=== PATIENT | female | born 1955 | race Caucasian/White ===

== ENCOUNTER → 2017-03-20 | Outpatient (CLI) | payer BC, OTHER ==
[2017-03-20 09:36] LABS: Bilirubin, Delta 0.2 mg/dL (0.0-0.2); Total Bilirubin 0.6 mg/dL (0.2-1.3); Total Protein 7.8 g/dL (6.3-8.2)
== END | disposition home or self-care (01) ==
LOC: LABWHC1 08:39
DX: K75.81 Nonalcoholic steatohepatitis (NASH) (principal)
CPT/HCPCS: 36415; 80076

== ENCOUNTER → 2017-07-05 | Outpatient (CLI) | payer BC, OTHER ==
--- NOTE | 2017-07-06 11:15 | MM ---
Reason for exam: screening (asymptomatic). Last mammogram was performed 1 year ago. History: Patient is postmenopausal. Family history of breast cancer in mother at age 75, breast cancer in maternal grandmother at age 60, and breast cancer in maternal aunt at age 60. Benign excisional biopsy of the right breast, 1990. Took estrogen beginning at age 45. Physical Findings: A clinical breast exam by your physician is recommended on an annual basis and results should be correlated with mammographic findings. MG Screening Mammo w CAD Bilateral CC and MLO view(s) were taken. Prior study comparison: June 28, 2016, mammogram, performed at [facility]. June 26, 2015, mammogram, performed at [facility]. There are scattered fibroglandular densities. Finding: There are typically benign round calcifications in both breasts. There is no discrete abnormality. ASSESSMENT: Benign, BI-RAD 2 RECOMMENDATION: Routine screening mammogram of both breasts in 1 year.
== END | disposition home or self-care (01) ==
LOC: RADMAMWWP 07:38
PROVIDERS: ATTEND Internal Medicine
DX: Z12.31 Encounter for screening mammogram for malignant neoplasm of breast (principal)

== ENCOUNTER → 2017-11-21 | Outpatient (CLI) | payer BC, OTHER ==
--- NOTE | 2017-11-21 22:32 | MR ---
EXAMINATION TYPE: MR brain wo con DATE OF EXAM: 11/21/2017 COMPARISON: Prior MRI brain October 18, 2016. HISTORY: Headaches, tinnitus, hx white matter changes TECHNIQUE: Multiplanar, multisequence imaging of the brain and brainstem is performed without IV cont rast. Demyelinating disease protocol. FINDINGS: Diffusion weighted images demonstrate no evidence of a recent infarct or other diffusion abnormality. There is no worrisome extra-axial fluid collection. There is ventricular and sulcal prominence consis tent with diffuse cerebral atrophy. There are roughly 10 scattered foci of T2 hyperintensity redemons trated throughout the white matter bilaterally. Five distinct lesions are seen on axial image 19 unch anged in size and appearance from prior study axial image 18. Midline structures demonstrate normal morphology. The craniocervical junction appears within normal limits. Normal vascular flow voids are present. The visualized sinuses are clear and the globes are i ntact. IMPRESSION: Mild diffuse age-related cerebral atrophy and nonspecific white matter changes most likel y on basis of product of chronic small vessel ischemic change in patient of this age. No significant change from prior MRI.
== END | disposition home or self-care (01) ==
LOC: RADMRIMAIN 18:02
PROVIDERS: ATTEND Internal Medicine
DX: G31.9 Degenerative disease of nervous system, unspecified (principal); R90.82 White matter disease, unspecified; H93.19 Tinnitus, unspecified ear
CPT/HCPCS: 70551

== ENCOUNTER → 2018-05-03 | Outpatient (CLI) | payer BC, OTHER ==
--- NOTE | 2018-05-04 09:15 | CT ---
EXAMINATION TYPE: CT abdomen pelvis w con DATE OF EXAM: 05/03/2018 COMPARISON: NONE INDICATION: Abdominal pain with bloating x2 months DLP: 1402 mGycm, Automated exposure control for dose reduction was used. CONTRAST: 100 mL of Isovue 300. Study performed with Oral Contrast TECHNIQUE: Axial images were obtained from above the diaphragm to the pubic rami in the axial plane a t 5 mm thick sections. Reconstructed images are reviewed on the computer in the coronal plane. FINDINGS: Limited CT sections are obtained the lung bases. The lung bases are clear. CT ABDOMEN: Liver: There is mild fatty infiltration present. No discrete masses or cysts are evident. Spleen: Normal Pancreas: Atrophy Adrenal glands: The adrenal glands are normal. Gallbladder: Normal Kidneys: No masses are evident. No hydronephrosis is present. Scattered small cortical cysts are mo st evident on the delayed images. The largest is at the superior pole left kidney measuring 1.1 cm an d 34 Hounsfield units. Delayed images were obtained through the kidneys, which remain unremarkable. Aorta: Normal Inferior vena cava: Normal. CT PELVIS: Loops of bowel within the abdomen and pelvis are normal. There are loops of bowel which are incom pletely distended or lack oral contrast limiting their evaluation. Appendix: Normal as visualized. Urinary bladder: Normal. Genitourinary structures: Uterus and ovaries are not identified. Osseous structures: No suspicious lytic or sclerotic lesions. Facet changes are present within the huong mbar spine. IMPRESSIONS: 1. Mild fatty infiltration liver. 2. Small cortical renal cysts
== END | disposition home or self-care (01) ==
LOC: RADCTMAIN 16:28
PROVIDERS: ATTEND Internal Medicine Critical Care Medicine
DX: N28.1 Cyst of kidney, acquired (principal); K76.0 Fatty (change of) liver, not elsewhere classified; R06.00 Dyspnea, unspecified
CPT/HCPCS: 74177; Q9967

== ENCOUNTER 2018-05-15 09:28 | Day surgery (SDC) | payer BC, OTHER ==
[2018-05-10 14:24] VITALS: BMI 24.9
[~2018-05-15 09:28] MED LIST: LACTATED RINGERS 1,000 ML IV SCH; LIDOCAINE 1% 20 ML VIAL (10MG/ML) FOR IV START INTRADERMA PRN; MIDAZOLAM 2 MG/2 ML VIAL IV PRN
[2018-05-15 09:52] VITALS: TEMP 97.9
[2018-05-15] MEDS ORDERED: PROPOFOL 10 MG/ML 20 ML VIAL IV ONE (10:51)
[2018-05-15] MEDS ORDERED: GLYCOPYRROLATE 0.2 MG/ML 2 ML VIAL ONE (10:51)
[2018-05-15] MEDS ORDERED: LIDOCAINE 1% INJ 10MG/ML (20 ML MDV) ONE (10:51)
--- NOTE | 2018-05-15 11:28 | P.PCN ---
Date of Procedure: 05/15/18 Procedure(s) Performed: Procedure: 1. Esophagogastroduodenoscopy and biopsy. 2. Total colonoscopy. Preoperative diagnosis: Chronic reflux symptoms and abdominal pain. Postoperative diagnosis: 1. Small sliding hiatal hernia with no obvious esophagitis or complicated reflux disease. 2. Mild antral gastritis. 3. Colon and terminal ileum within normal limits. Preparation: HalfLytely prep. Sedation: Was provided by anesthesia. Brief clinical history: The patient is a 62-year-old female who is scheduled for this evaluation for the above symptoms. She has been having left-sided abdominal pain for some time. She complains of heartburn and reflux symptoms as well. She had no prior upper endoscopyor colonoscopy. Procedure: With the patient on her left lateral decubitus position and after informed consent and adequate sedation, I passed the Olympus-GIF 160 video upper endoscope through the cricopharyngeus down the esophagus. GE junction was around 38 cm from the incisors and there was a small sliding hiatal hernia but no obvious esophagitis or complicated reflux disease. The endoscope was then passed into the stomach which was insufflated with air and inspected in detail including the retroflex view in the cardia. There was some mottling and erythema in the antrum but no ulcers or erosions. Pyloric channel, duodenal bulb, post bulbar area and descending duodenum appeared within normal limits. Because of her symptoms, I obtained biopsies from the duodenum, antrum and esophagus then the endoscope was withdrawn and I proceeded with the colonoscopy. Perianal area did not show any fissures or fistulas. There were no masses felt on digital rectal examination. The Olympus CFQ 160L video colonoscope was then inserted in the rectum in the usual fashion and advanced to the cecum. I intubated the ileocecal valve and examined the terminal ileum as well. The mucosa appeared healthy. No polyps or tumors were seen or any obvious diverticular disease. I retroflexed the endoscope in the rectum before the endoscope was withdrawn. The patient tolerated the procedure well. Plan: The patient was reassured. Will await biopsy results and make further plans. For future surveillance colonoscopy, I recommended repeat exam in 10 years.
[2018-05-15 11:47] VITALS: BP 111/71; PULSE 69; RESP 16
== END 2018-05-15 12:11 | disposition home or self-care (01) ==
LOC: ORWHC2ENDO 09:28
DX: K21.9 Gastro-esophageal reflux disease without esophagitis (principal); K29.50 Unspecified chronic gastritis without bleeding; K44.9 Diaphragmatic hernia without obstruction or gangrene; K76.0 Fatty (change of) liver, not elsewhere classified; N28.1 Cyst of kidney, acquired; D68.62 Lupus anticoagulant syndrome; M19.90 Unspecified osteoarthritis, unspecified site; Z88.0 Allergy status to penicillin; Z79.899 Other long term (current) drug therapy
CPT/HCPCS: 88305; 45378; 43239; J2001; J2704

== ENCOUNTER → 2018-07-26 | Outpatient (CLI) | payer MEDICARE, BC, OTHER ==
--- NOTE | 2018-07-26 14:40 | MM ---
Reason for exam: screening (asymptomatic). Last mammogram was performed 1 year and 1 month ago. History: Patient is postmenopausal. Family history of breast cancer in mother at age 75, breast cancer in maternal grandmother at age 60, and breast cancer in maternal aunt at age 60. Benign excisional biopsy of the right breast, 1990. Took estrogen beginning at age 45. Physical Findings: A clinical breast exam by your physician is recommended on an annual basis and results should be correlated with mammographic findings. MG 3D Screening Mammo W/Cad Bilateral CC and MLO view(s) were taken. Prior study comparison: July 05, 2017, bilateral MG screening mammo w CAD. June 28, 2016, mammogram, performed at [facility]. The breast tissue is heterogeneously dense. This may lower the sensitivity of mammography. There is chronic nodularity in the right breast. Dense tissues are present anteriorly on a background of fatty breasts. No significant changes when compared with prior studies. ASSESSMENT: Negative, BI-RAD 1 RECOMMENDATION: Routine screening mammogram of both breasts in 1 year.
== END | disposition home or self-care (01) ==
LOC: RADMAMWWP 09:02
PROVIDERS: ATTEND Internal Medicine
DX: Z12.31 Encounter for screening mammogram for malignant neoplasm of breast (principal)
CPT/HCPCS: 77063; 77067

== ENCOUNTER → 2019-07-09 | Outpatient (CLI) | payer MEDICARE, BC, OTHER ==
[2019-07-09 11:33] LABS: HCT 41.8 % (34.0-46.0); HGB 13.5 gm/dL (11.4-16.0); MCH 28.8 pg (25.0-35.0); MCHC 32.3 g/dL (31.0-37.0); Mean Platelet Volume 6.8; Platelet Count 215 k/uL (150-450); RBC 4.69 m/uL (3.80-5.40); WBC 5.2 k/uL (3.8-10.6)
[2019-07-09 19:40] LABS: Albumin 4.6 g/dL (3.80-4.90); Albumin/Globulin Ratio 2.19 (1.60-3.17); Anion Gap 7.1 mmol/L (4.00-12.00); Calcium 9.8 mg/dL (8.7-10.3); Carbon Dioxide 26.9 mmol/L (21.6-31.8); Chol/HDL Ratio 3.33; Globulin 2.1 g/dL (1.6-3.3); LDL Cholesterol,Calculated 123.2 mg/dL (0.0-131.0); Non-African American GFR(CKD) 58.7 (60.0-200.0); Potassium 4.5 mmol/L (3.5-5.5); T4, Free (Free Thyroxine) 0.9 ng/dL (0.80-1.80); Total Bilirubin 0.4 mg/dL (0.2-1.2); Total Protein 6.7 g/dL (6.2-8.2); VLDL Calculation 32.8 mg/dL (5.00-40.00)
== END | disposition home or self-care (01) ==
LOC: LABWHC1 11:02
PROVIDERS: ATTEND Internal Medicine
DX: K76.0 Fatty (change of) liver, not elsewhere classified (principal); E55.9 Vitamin D deficiency, unspecified; E61.1 Iron deficiency
CPT/HCPCS: 36415; 80053; 80061; 82306; 82607; 83540; 84439; 84443; 84481; 85027; 86308

== ENCOUNTER → 2019-07-20 | Outpatient (CLI) | payer MEDICARE, OTHER ==
--- NOTE | 2019-07-20 11:58 | MR ---
EXAMINATION TYPE: MR brain wo con DATE OF EXAM: 07/20/2019 COMPARISON: 11/21/2017 HISTORY: Headaches, lesions CONTRAST: Performed utilizing 0 mL intravenous Gadavist gadolinium contrast. TECHNIQUE: Multiplanar, multiecho imaging on a 3.0 Arin magnet is performed through the brain. Stud y is performed within 24 hours of arrival to the hospital. The craniovertebral junction is normal. The pituitary is normal. Diffusion-weighted imaging is performed. No abnormal hyperintensity is present to suggest an acute i ntracranial infarct or acute ischemic change. Couple of nonspecific punctate white matter changes on T2 and inversion recovery weighted sequences a re present in the subcortical white matter. This is not out of proportion patient age. No mass effect is evident. No new lesions are evident. Ventricles and sulci are appropriate for the patient age. Normal vascular flow voids are present. Opt ic chiasm is visualized appears normal. IMPRESSIONS: 1. Scattered white matter changes are nonspecific likely related to microvascular ischemic change. Mi graine headaches could be within the differential. Findings are stable from comparison.
== END | disposition home or self-care (01) ==
LOC: RADMRIMAIN 09:27
PROVIDERS: ATTEND Internal Medicine
DX: G31.1 Senile degeneration of brain, not elsewhere classified (principal)
CPT/HCPCS: 70551

== ENCOUNTER → 2019-07-23 | Outpatient (CLI) | payer MEDICARE, BC, OTHER ==
--- NOTE | 2019-07-23 09:50 | US ---
EXAMINATION TYPE: US abdomen complete DATE OF EXAM: 07/23/2019 COMPARISON: CT dated 617 CLINICAL HISTORY: R94.5 R94.4, Abnormal Liver funciton,. NPO, no previous surgery EXAM MEASUREMENTS: Liver Length: 19.7 cm Gallbladder Wall: 0.2 cm CBD: 0.3 cm Spleen: 9.3 cm Right Kidney: 10.7 x 4.5 x 3.3 cm Left Kidney: 10.6 x 4.5 x 3.7 cm Pancreas: wnl Liver: Enlarged. Appears coarse in appearance. Anterior right lesions visualized with shadowing- 0. 5 x 0.6 x 0.5 cm Gallbladder: wnl Evidence for sonographic Hoffmann's sign: neg CBD: wnl Spleen: wnl Right Kidney: upper pole cortical cystic appearing lesion seen - 0.6 x 0.6 x 0.5 cm. Left Kidney: lower pole cystic cluster vs septated cystic lesion visualized - 1.6 x 1.4 x 1.2 cm Upper IVC: wnl Abd Aorta: no AAA visualized The intrahepatic portion of the IVC and proximal abdominal aorta are within normal limits. There is no evidence of cholelithiasis. Common bile duct is unremarkable. The visualized portions of the grijalva creas are homogenous. The spleen is unremarkable. Kidneys are symmetric and free of hydronephrosis. No renal lesions are seen. IMPRESSION: Sonographic findings are most commonly related to hepatic steatosis although other hepato cellular diseases are possible. Additionally there is a 6 mm lesion within the right hepatic lobe minerva t is hyperechoic. Most commonly this would relate to a hemangioma and a patient without underlying he patocellular disease. This is not appreciated on the prior CT of 05/03/2018. Given this may represent a meningioma ultrasound could be performed for further characterization with enhanced MR liver.
== END | disposition home or self-care (01) ==
LOC: RADUSWWP 08:29
PROVIDERS: ATTEND Internal Medicine
DX: K76.0 Fatty (change of) liver, not elsewhere classified (principal); K76.9 Liver disease, unspecified; R94.4 Abnormal results of kidney function studies
CPT/HCPCS: 76700

== ENCOUNTER → 2019-07-23 | Outpatient (CLI) | payer MEDICARE, BC, OTHER ==
[2019-07-24 05:55] LABS: EBV - VCA IgM <10.0 U/mL (<36.0)
== END | disposition home or self-care (01) ==
LOC: LABWHC1 13:12
PROVIDERS: ATTEND Internal Medicine
DX: R53.83 Other fatigue (principal); Z86.19 Personal history of other infectious and parasitic diseases
CPT/HCPCS: 36415; 86665

== ENCOUNTER → 2019-08-02 | Outpatient (CLI) | payer MEDICARE, OTHER ==
--- NOTE | 2019-08-05 08:08 | MM ---
Reason for exam: screening (asymptomatic). Last mammogram was performed 1 year ago. History: Patient is postmenopausal. Family history of breast cancer in mother at age 75, breast cancer in maternal grandmother at age 60, and breast cancer in maternal aunt at age 60. Benign excisional biopsy of the right breast, 1990. Took estrogen beginning at age 45. Physical Findings: A clinical breast exam by your physician is recommended on an annual basis and results should be correlated with mammographic findings. MG 3D Screening Mammo W/Cad Bilateral CC and MLO view(s) were taken. Prior study comparison: July 26, 2018, bilateral MG 3d screening mammo w/cad. July 05, 2017, bilateral MG screening mammo w CAD. The breast tissue is heterogeneously dense. This may lower the sensitivity of mammography. Nodular asymmetric density central superior right breast at an anterior depth incompletely disperses on 3D and is more defined. ASSESSMENT: Incomplete: need additional imaging evaluation, BI-RAD 0 RECOMMENDATION: Special view mammogram of the right breast. (3D) If lesion persists on supplemental views, image directed ultrasound is recommended. [facility] will attempt to contact patient to return for supplemental views and ultrasound if indicated.
== END | disposition home or self-care (01) ==
LOC: RADMAMWWP 07:03
PROVIDERS: ATTEND Internal Medicine
DX: Z12.31 Encounter for screening mammogram for malignant neoplasm of breast (principal)
CPT/HCPCS: 77063; 77067

== ENCOUNTER → 2019-08-22 | Outpatient (CLI) | payer MEDICARE, OTHER ==
--- NOTE | 2019-08-22 14:04 | MM ---
Reason for exam: follow-up at short interval from prior study. Last mammogram was performed 1 month ago. History: Patient is postmenopausal. Family history of breast cancer in mother at age 75, breast cancer in maternal grandmother at age 60, and breast cancer in maternal aunt at age 60. Benign excisional biopsy of the right breast, 1990. Took estrogen beginning at age 45. Physical Findings: Nurse did not find any significant physical abnormalities on exam. MG 3D Work Up W/Cad RT LM and spot compression MLO view(s) were taken of the right breast. Prior study comparison: August 02, 2019, bilateral MG 3d screening mammo w/cad. July 26, 2018, bilateral MG 3d screening mammo w/cad. The breast tissue is heterogeneously dense. This may lower the sensitivity of mammography. The previously seen abnormality resolves on additional views and appears as fibroglandular tissue compatible with summation. Post excisional change on the right. These results were verbally communicated with the patient and result sheet given to the patient on 08/22/19. ASSESSMENT: Benign, BI-RAD 2 RECOMMENDATION: Follow-up diagnostic mammogram of both breasts in 1 year.
== END | disposition home or self-care (01) ==
LOC: RADMAMWWP 13:25
PROVIDERS: ATTEND Internal Medicine
DX: R92.8 Other abnormal and inconclusive findings on diagnostic imaging of breast (principal)
CPT/HCPCS: 77065; G0279; 77061

== ENCOUNTER → 2019-09-02 | Outpatient (CLI) | payer MEDICARE, OTHER ==
--- NOTE | 2019-09-02 09:08 | MR ---
MR liver with and without contrast HISTORY: Hepatic lesion, abnormal ultrasound, abnormal liver function Multiplanar multisequence and postcontrast images obtained through the liver following 7 cc Gadavist IV. Correlation to ultrasound abdomen 07/23/2019, CT 05/03/2018 The liver shows signal drop on out of phase imaging compatible with hepatic steatosis. The 6 mm focus of abnormal echogenicity seen within the liver in close proximity to the gallbladder at the liver ma rgin as noted on ultrasound is at the anterior margin of the liver and shows decreased signal on T1-w eighted images, some questionable peripheral enhancement seen on axial images #45 and 46 postcontrast , some questionable peripheral high signal on T2-weighted sequences, axial image 22. Suspect a corres ponding abnormality was present on prior CT. There is no evident adenopathy. Lung bases are clear. Aorta shows normal caliber. The kidneys show bi lateral scattered cortical cysts. Adrenal glands are within normal limits. Spleen is unremarkable. Pa ncreas shows no mass. There is no ascites. IMPRESSION: Suspect the abnormality described on the prior ultrasound is stable compared to prior CT from 2018. The finding is indeterminate and of questionable clinical significance. Consider follow-up to assess for stability.
== END | disposition home or self-care (01) ==
LOC: RADMRIMAIN 07:28
PROVIDERS: ATTEND Internal Medicine Gastroenterology
DX: K76.9 Liver disease, unspecified (principal)
CPT/HCPCS: 74183; A9585

== ENCOUNTER → 2019-09-12 | Outpatient (CLI) | payer MEDICARE, OTHER ==
[2019-09-12 13:05] VITALS: BP 156/88; PULSE 64; RESP 18; TEMP 98.2; BMI 25.4
--- NOTE | 2019-09-12 13:32 | P.GSHP ---
History of Present Illness H&P Date: 09/12/19 Chief Complaint: rash under the left breast, fibrocystic breast changes Deandra is a 64-year-old white female who presents for breast evaluation. She had a bilateral screening mammogram done on 08-02-19. The findings here were felt to be incomplete and special view of the right breast was recommended. The patient had a right breast diagnostic mammogram on [id number]. This was felt to be benign BIRADS 2 and follow-up diagnostic mammogram of both breast 1 year was recommended. The patient does not feel any lumps masses or nodules in her breast. The patient is not complaining of any nipple discharge or skin changes. She is not complaining of any pain in her breast. The patient had a right breast biopsy at the age of 36. Cate risk evaluation: 5 year breast cancer risk 10% compared with 2.1% for average 66-year-old woman Lifetime cancer risk 31.3% compared to 7.5% over 66-year-old woman Family history: 1. mother: breast cancer, endometrial cancer 2. maternal grandmother: breast cancer 3. maternal aunt: breast cancer 4. paternal cousin: breast cancer re-menopausal Hormonal History: menarche: 11 , breast fed: yes, age at first 17 menopause: BENJY at 45 ( for endometriosis) BCP: none hormones: 10 years Surgical history: 1. Total abdominal hysterectomy 2. Right breast lumpectomy for benign disease at the age of 36 3. tonsil and adenoids 4. umbilical hernia 5. pilonidal cyst 6. tubal-ligation 7. septum surgery 8 cataracts 9. liver biopsy Medical History: 1.REYNOLDS-nonalcoholic fatty liver disease 2. cardiac anomaly Social History: smoke: none alcohol: none drugs: none - Constitutional Constitutional: Denies chills, Denies fever - EENT Eyes: denies blurred vision, denies pain Ears: bilateral: decreased hearing, deny: tinnitus Ears, nose, mouth and throat: Denies headache, Denies sore throat - Breasts Breasts: bilateral: as per HPI - Cardiovascular Comment: congenital cardiac anomaly - Respiratory Respiratory: Denies cough, Denies 7 - Gastrointestinal Gastrointestinal: Denies abdominal pain, Denies diarrhea, Denies nausea, Denies vomiting - Genitourinary (Female) Genitourinary: Denies dysuria, Denies hematuria - Menstruation Menstruation: Reports post hysterectomy - Musculoskeletal Comment: arthritis Musculoskeletal: Reports myalgias - Integumentary Comment: under her left breast a rash for one week - Neurological Neurological: Denies numbness, Denies weakness - Psychiatric Psychiatric: Denies anxiety, Denies depression - Endocrine Endocrine: Denies fatigue, Denies weight change - Hematologic/Lymphatic Comment: none - Allergic/Immunologic Allergic/Immunologic: Reports seasonal allergies Past Medical History Past Medical History: Blood Disorder, Chest Pain / Angina, Osteoarthritis (OA) Additional Past Medical History / Comment(s): LUPUS ANTICOAGULANT DISORDER.MTHFR ,HEART MURMUR. " ONLY ONE MAIN ARTERY GOING TO MY BRAIN INSTEAD OF TWO" , FATTY LIVER . KIDNEY STONES AND BLOOD IN URINE. History of Any Multi-Drug Resistant Organisms: None Reported Past Surgical History: Adenoidectomy, Hysterectomy, Tonsillectomy Additional Past Surgical History / Comment(s): RIGHT BREAST BIOPSY-. CATARACT SURGERY. UMBILICAL HERNIA. PYLONITAL CYST REMOVAL. Past Anesthesia/Blood Transfusion Reactions: No Reported Reaction Past Psychological History: No Psychological Hx Reported Smoking Status: Never smoker Past Alcohol Use History: None Reported Past Drug Use History: None Reported - Past Family History Mother Family Medical History: Cancer, CVA/TIA Additional Family Medical History / Comment(s): ENDOMETRIAL AND BREAST CANCER. Father Family Medical History: Cancer, Dementia, Myocardial Infarction ([place]) Additional Family Medical History / Comment(s): PROSTATE CANCER. Medications and Allergies Home Medications Medication Instructions Recorded Confirmed Type Pantoprazole Sodium [Protonix] 40 mg PO DAILY 05/10/18 09/12/19 History Calcium Carbonate [Calcium] 600 mg PO DAILY 09/12/19 09/12/19 History Cholecalciferol (Vitamin D3) 2,000 unit PO DAILY 09/12/19 09/12/19 History [Vitamin D3] Cinnamon Bark [Cinnamon] 500 mg PO DAILY 09/12/19 09/12/19 History Allergies Allergy/AdvReac Type Severity Reaction Status Date / Time Penicillins Allergy Unknown Rash/Hives Verified 09/12/19 13:06 Surgical - Exam Vital Signs Temp Pulse Resp BP Pulse Ox 98.2 F 64 18 156/88 100 09/12/19 13:02 09/12/19 13:02 09/12/19 13:02 09/12/19 13:02 09/12/19 13:02 BMI 25.5 - General well developed, well nourished, no distress - Eyes normal ocular movement - ENT no hearing loss, no congestion - Neck no masses, trachea midline - Respiratory normal expansion, normal respiratory effort, clear to auscultation - Cardiovascular Rhythm: regular Heart Sounds: normal: S1, S2 - Abdomen Abdomen: soft, non tender, no guarding, no rigid, no rebound - Integumentary normal turgor - Neurologic no disoriented, no combative - Musculoskeletal normal gait, normal posture - Psychiatric oriented to time, oriented to person, oriented to place, speech is normal, memory intact Breast exam: Right breast: Multi-positional exam no dominant masses or nodules of concern Right axilla: No adenopathy of concern Left breast: Multiple positional exam no dominant masses or nodules of concern Left axilla: No adenopathy of concern On the medial chest wall near the left breast there is scattered questionable folliculitis type pattern of rash, distal on appeared to be consistent with a fungal infection. Results Mammogram results reviewed Assessment and Plan Assessment: Impression: 1. Radiographic abnormality right breast mammogram BIRADS 2 repeat diagnostic BIRADS 2 bilateral mammogram in 1 year recommended 2. Fibrocystic breast changes 3. Skin rash medial aspect of the left breast patient is going to follow with dermatology uncertain as to the cause 4. Mass 5. Family history of breast cancer 6. High risk for breast cancer Plan: 1. Bilateral mammogram in 1 year with physician exam 2. Follow-up with dermatology 3. Have discussed possibility of genetic counseling patient's not interested at this time 4. We have discussed chemoprevention secondary to the fact that the patient is high risk for development of breast cancer and again at this time the patient is not interested 5. Medical management of medical conditions CC: Dr. Rosales
== END ==
LOC: WWCWWP 12:10
PROVIDERS: ATTEND Surgery
DX: Z53.9 Procedure and treatment not carried out, unspecified reason (principal)

== ENCOUNTER → 2019-09-19 | Outpatient (CLI) | payer MEDICARE, OTHER ==
--- NOTE | 2019-09-19 09:09 | NM ---
EXAMINATION TYPE: NM hepatobiliary w EF DATE OF EXAM: 09/19/2019 COMPARISON: 10/07/2016 INDICATION: Right upper quadrant pain TECHNIQUE: After the intravenous administration of 4.65 mCi Tc 99m Mebrofenin hepatobiliary scintigra phy is performed. Images were obtained immediately post injection. FINDINGS: There is prompt uptake and excretion of radiotracer by the liver. Extrahepatic ducts are identified at 8 minutes. The gallbladder is visualized within 16 minutes. Small bowel activity is noted within 14 minutes. At one hour 8 ounces of oral ensure plus is given to mimic CCK and gallbladder ejection fraction is c alculated at 88 %, which is elevated. (Normal >35% and <80%.). IMPRESSION: 1. Biliary hyperkinesia
== END | disposition home or self-care (01) ==
LOC: RADNMMAIN 06:24
PROVIDERS: ATTEND Internal Medicine Gastroenterology
DX: K83.8 Other specified diseases of biliary tract (principal)
CPT/HCPCS: 78226; A9537

== ENCOUNTER 2019-10-15 08:02 | Day surgery (SDC) | payer MEDICARE, OTHER ==
[2019-10-14 09:38] VITALS: BMI 25.4
[~2019-10-15 08:02] MED LIST changes: +DEXAMETHASONE SOD PHOSPHATE 10 MG/ML 1 ML VIAL IV ONE; +HEPARIN SODIUM,PORCINE 5,000 UNIT/ML 1 ML VIAL SQ ONE; +HYDROmorphone 0.5 MG/0.5 ML SYRINGE IVP PRN; -LIDOCAINE 1% 20 ML VIAL (10MG/ML) FOR IV START INTRADERMA PRN; +ONDANSETRON 4 MG/2 ML VIAL IVP ONE
[2019-10-15 08:31] VITALS: TEMP 97.4
[2019-10-15] MEDS ORDERED: LIDOCAINE 1% 20 ML VIAL (10MG/ML) FOR IV START INTRADERMA ONE (08:35)
--- NOTE | 2019-10-15 08:50 | P.GSHP ---
History of Present Illness H&P Date: 10/15/19 Chief Complaint: Right upper quadrant. This is a 64-year-old female who's was run quadrant pain. Patient was recently found have hyperkinetic gallbladder on HIDA scan. She's had issues with recurrent quadrant pain with eating greasy and fried foods. Past Medical History Past Medical History: Blood Disorder, Chest Pain / Angina, Liver Disease, Osteoarthritis (OA) Additional Past Medical History / Comment(s): LUPUS ANTICOAGULANT DISORDER.MTHFR ,HEART MURMUR. "ONLY ONE MAIN ARTERY GOING TO MY BRAIN INSTEAD OF TWO", FATTY LIVER-nonalcoholic steatohepatitis, hiatal hernia, KIDNEY STONES History of Any Multi-Drug Resistant Organisms: None Reported Past Surgical History: Adenoidectomy, Breast Surgery, Hysterectomy, Tonsillectomy Additional Past Surgical History / Comment(s): RIGHT BREAST BIOPSY-. CATARACT SURGERY. UMBILICAL HERNIA. PYLONIDAL CYST REMOVAL, deviated septum, liver biopsy Past Anesthesia/Blood Transfusion Reactions: No Reported Reaction Smoking Status: Never smoker - Past Family History Mother Family Medical History: Cancer, CVA/TIA Additional Family Medical History / Comment(s): ENDOMETRIAL AND BREAST CANCER. Father Family Medical History: Cancer, Dementia, Myocardial Infarction ([place]) Additional Family Medical History / Comment(s): PROSTATE CANCER. Medications and Allergies Home Medications Medication Instructions Recorded Confirmed Type No Known Home Medications 10/14/19 10/15/19 History Allergies Allergy/AdvReac Type Severity Reaction Status Date / Time Penicillins Allergy Unknown Rash/Hives Verified 10/15/19 08:28 Surgical - Exam Vital Signs Temp Pulse Resp BP Pulse Ox 97.4 F L 58 L 14 126/75 100 10/15/19 08:29 10/15/19 08:29 10/15/19 08:29 10/15/19 08:29 10/15/19 08:29 - General well developed, well nourished, no distress - Eyes PERRL - ENT normal pinna - Neck no masses - Respiratory normal expansion - Cardiovascular Rhythm: regular - Abdomen Abdomen: soft, non tender Assessment and Plan Assessment: Right upper quadrant pain Abnormal HIDA scan We'll perform laparoscopic cholecystectomy
[2019-10-15] MEDS ORDERED: PROPOFOL 10 MG/ML 20 ML VIAL IV ONE (09:08)
[2019-10-15] MEDS ORDERED: SUCCINYLCHOLINE CHLORIDE 100 MG/5 ML SYR IV ONE (09:08)
[2019-10-15] MEDS ORDERED: GLYCOPYRROLATE 0.2 MG/ML 2 ML VIAL ONE (09:08)
[2019-10-15] MEDS ORDERED: LIDOCAINE 1% INJ 10MG/ML (20 ML MDV) ONE (09:08)
[2019-10-15] MEDS ORDERED: ROCURONIUM BROMIDE 10 MG/ML 10 ML VIAL IV ONE (09:08)
[2019-10-15] MEDS ORDERED: KETOROLAC 30 MG/ML 1 ML VIAL ONE (09:08)
[2019-10-15] MEDS ORDERED: MIDAZOLAM 2 MG/2 ML VIAL ONE (09:08)
[2019-10-15] MEDS ORDERED: ePHEDrine SULFATE/0.9% NACL/PF 50 MG/5 ML SYRINGE IV ONE (09:08)
[2019-10-15] MEDS ORDERED: NEOSTIGMINE 1 MG/ML 10 ML VIAL ONE (09:08)
[2019-10-15] MEDS ORDERED: fentaNYL (PF) 50 MCG/ML 2 ML AMP ONE (09:08)
[2019-10-15] MEDS ORDERED: BUPIVACAINE (PF) 0.25% 30 ML VIAL SQ ONE ×2 (09:18→09:30)
--- NOTE | 2019-10-15 09:58 | P.OP ---
Date of Procedure: 10/15/19 Preoperative Diagnosis: Cholecystitis Postoperative Diagnosis: Cholecystitis Procedure(s) Performed: Laparoscopic cholecystectomy Anesthesia: MARIA ELENA Surgeon: Jose Alejandro Santillan Estimated Blood Loss (ml): 5 Pathology: none sent Condition: stable Disposition: PACU Description of Procedure: HaThe patient was placed on the operating table. The patient received a general endotracheal tube anesthesia. The patients abdomen was prepped and draped in the usual sterile fashion. Through an infraumbilical stab incision, the fascia of the anterior abdominal wall was grasped with a pair of Kochers and then the Veress needle was placed in the peritoneal cavity. Position of the Veress needle was confirmed with positive drop test. The abdomen was then insufflated. After adequate insufflation, the 10 mm trocar was placed in the peritoneal cavity. Following this the laparoscope was placed in the peritoneal cavity. The patient was placed in the head-up, right side up position and then a 5 mm trocar was placed in the right lateral and right subcostal posit ion under direct visualization. A 8 mm trocar was placed in the epigastric position. The gallbladder was grasped in the fundus and infundibulum. Traction on the gallbladder was placed in the lateral and the cephalad positions. The triangle of Calot was visualized.. The cystic duct was bluntly dissected until the union of the cystic duct and common bile duct was seen. A critical view of safety was achieved. The cystic duct was then divided and sealed with the Harmonic scissors. A PDS Endoloop was then placed throughout the cystic duct stump. The cystic artery divided and sealed with the Harmonic scissors. The gallbladder was then removed from the liver bed using Harmonic scissors. The gallbladder was then extracted through the epigastric port site. Operative field was checked for any bleeding spots and Harmonic scissors was used to coagulate the liver bed. The abdomen was irrigated. The trocars were removed. The skin was closed using interrupted 3-0 Vicryl suture. Dermabond dressing were applied. The patient tolerated the procedure well.
[2019-10-15] MEDS ORDERED: LACTATED RINGERS 1,000 ML IV ONE (10:33)
[2019-10-15 11:03] VITALS: BP 124/74; PULSE 60; RESP 18
== END 2019-10-15 11:55 | disposition home or self-care (01) ==
LOC: OR 08:02
PROVIDERS: ATTEND Surgery
DX: K81.1 Chronic cholecystitis (principal); M19.90 Unspecified osteoarthritis, unspecified site; K82.8 Other specified diseases of gallbladder; D68.62 Lupus anticoagulant syndrome; K75.81 Nonalcoholic steatohepatitis (NASH); K44.9 Diaphragmatic hernia without obstruction or gangrene; Z87.442 Personal history of urinary calculi; Z82.49 Family history of ischemic heart disease and other diseases of the circulatory system; Z88.0 Allergy status to penicillin; Z90.89 Acquired absence of other organs; Z98.890 Other specified postprocedural states; Z90.710 Acquired absence of both cervix and uterus; Z87.19 Personal history of other diseases of the digestive system; Z80.3 Family history of malignant neoplasm of breast; Z80.49 Family history of malignant neoplasm of other genital organs; Z80.42 Family history of malignant neoplasm of prostate
CPT/HCPCS: 88304; 47562; J2250; J1644; J1100; J2710; J0690; J2405; J2001; J3010; J1885; J0330; J2704

== ENCOUNTER → 2019-11-08 | Outpatient (CLI) | payer MEDICARE, BC, OTHER ==
--- NOTE | 2019-11-08 12:42 | BD ---
EXAMINATION TYPE: Axial Bone Density DATE OF EXAM: 11/08/2019 COMPARISON: 11/07/2017 CLINICAL HISTORY: Z 78.0 Height: 64 IN Weight: 159 LBS FRAX RISK QUESTIONS: Secondary Osteoporosis: 3. Menopause before 45: TOTAL HYST AGE 45 5. Chronic liver disease: NON ALCOHOLIC FATTY LIVER DISEASE RISK FACTORS HISTORY OF: Family History of Osteoporosis: YES MOTHER Active: YES Diet low in dairy products/other sources of calcium: YES Postmenopausal woman: TOTAL HYST AGE 45 Take estrogen and/or progesterone medications: NOT NOW How long: AGE 47-57 MEDICATIONS: Osteoporosis Medications: NOT NOW Which medication: Fosamax How Long: ONE MONTH Additional Medications: NONE EXAM MEASUREMENTS: Bone mineral densitometry was performed using the [employer]. Bone mineral density as measured about the Lumbar spine is: ----- L1-L4(G/cm2): 0.870 T Score Values are as follows: ----- L2: -3.4 ----- L3: -2.8 ----- L4: -1.5 ----- L1-L4: -2.6 Bone mineral density has: Decreased -0.4% since study of: 11/07/2017 Bone mineral density about the R hip (g/cm2): 0.723 Bone mineral density about the L hip (g/cm2): 0.657 T Score values are as follows: -----R Neck: -2.3 -----L Neck: -2.7 -----R Total: -1.7 -----L Total: -2.3 Bone mineral density has: Decreased -2.0% since study of: 11/07/2017 IMPRESSION: Osteoporosis (T Score less than -2.5). There is increased fracture risk and therapy is usually indicated based on age. Re-Screen 1-2 years. NOTE: T-SCORE=SD OF THE YOUNG ADULT MEAN.
== END ==
LOC: RADBDWWP 09:46
PROVIDERS: ATTEND Internal Medicine
DX: M81.0 Age-related osteoporosis without current pathological fracture (principal)
CPT/HCPCS: 77080

== ENCOUNTER → 2020-08-04 | Outpatient (CLI) | payer MEDICARE, OTHER ==
--- NOTE | 2020-08-04 11:37 | MM ---
Reason for exam: additional evaluation requested from prior study. Last mammogram was performed 11 months ago. History: Patient is postmenopausal. Family history of breast cancer in mother at age 75, breast cancer in maternal grandmother at age 60, and breast cancer in maternal aunt at age 60. Benign excisional biopsy of the right breast, 1990. Took estrogen beginning at age 45. Physical Findings: Nurse did not find any significant physical abnormalities on exam. MG 3D Diag Mammo W/Cad YANDY Bilateral CC and MLO view(s) were taken. Prior study comparison: August 22, 2019, right breast MG 3d work up w/cad RT. August 02, 2019, bilateral MG 3d screening mammo w/cad. The breast tissue is heterogeneously dense. This may lower the sensitivity of mammography. Finding #1: Architectural distortion in the upper outer quadrant, anterior position of the right breast consistent with known excision changes. Finding #2: There are typically benign round, regional calcifications in the left breast. There is no discrete abnormality. These results were verbally communicated with the patient and result sheet given to the patient on 08/04/20. ASSESSMENT: Benign, BI-RAD 2 RECOMMENDATION: Routine screening mammogram of both breasts in 1 year.
== END | disposition home or self-care (01) ==
LOC: RADMAMWWP 10:45
PROVIDERS: ATTEND Surgery
DX: R92.8 Other abnormal and inconclusive findings on diagnostic imaging of breast (principal)
CPT/HCPCS: 77066; G0279; 77062

== ENCOUNTER → 2020-08-07 | Outpatient (CLI) | payer MEDICARE, OTHER ==
[2020-08-07 10:49] VITALS: BP 129/83; PULSE 57; RESP 16; TEMP 98.1
--- NOTE | 2020-08-07 11:01 | P.PN ---
Subjective Progress Note Date: 08/07/20 Principal diagnosis: fibrocystic breast changes Deandra is a 65-year-old white female who presents for breast evaluation. She had a bilateral screening mammogram done on 08-04-20. This was felt to be benign BIRADS 2 and follow-up diagnostic mammogram of both breast 1 year was recommended. The patient does not feel any lumps masses or nodules in her breast. The patient is not complaining of any nipple discharge or skin changes. She is not complaining of any pain in her breast. The patient had a right breast biopsy at the age of 36 which was benign Cate risk evaluation: 5 year breast cancer risk 4% compared with 2.1% for average 66-year-old woman Lifetime cancer risk 13.2 compared to 7.2% over 66-year-old woman Family history: 1. mother: breast cancer, endometrial cancer 2. maternal grandmother: breast cancer 3. maternal aunt: breast cancer 4. paternal cousin: breast cancer pre-menopausal Hormonal History: menarche: 11 , breast fed: yes, age at first 17 menopause: BENJY at 45 ( for endometriosis) BCP: none hormones: 10 years Surgical history: 1. Total abdominal hysterectomy 2. Right breast lumpectomy for benign disease at the age of 36 3. tonsil and adenoids 4. umbilical hernia 5. pilonidal cyst 6. tubal-ligation 7. septum surgery 8 cataracts 9. liver biopsy 10. gallbladder Medical History: 1.REYNOLDS-nonalcoholic fatty liver disease 2. cardiac anomaly Social History: smoke: none alcohol: none drugs: none - Constitutional Constitutional: Denies chills, Denies fever - EENT Eyes: denies blurred vision, denies pain Ears: bilateral: decreased hearing, deny: tinnitus Ears, nose, mouth and throat: Denies headache, Denies sore throat - Breasts Breasts: bilateral: as per HPI - Cardiovascular Comment: congenital cardiac anomaly - Respiratory Respiratory: Denies cough - Gastrointestinal Gastrointestinal: Denies abdominal pain, Denies diarrhea, Denies nausea, Denies vomiting - Genitourinary (Female) Genitourinary: Denies dysuria, Denies hematuria - Menstruation Menstruation: Reports post hysterectomy - Musculoskeletal Comment: arthritis Musculoskeletal: Reports myalgias - Integumentary Comment: none - Neurological Neurological: Denies numbness, Denies weakness - Psychiatric Psychiatric: Denies anxiety, Denies depression - Endocrine Endocrine: Denies fatigue, Denies weight change - Hematologic/Lymphatic Comment: none - Allergic/Immunologic Allergic/Immunologic: Reports seasonal allergies Objective - Vital Signs Vital signs: Intake & Output 08/06/20 08/07/20 08/07/20 18:59 06:59 18:59 Weight 68.039 kg - Exam BMI 24.2 - Constitutional General appearance: Present: average body habitus - EENT Eyes: Present: EOMI ENT: Present: hearing grossly normal - Neck Neck: Present: normal ROM - Respiratory Respiratory: bilateral: CTA - Cardiovascular Rhythm: regular Heart sounds: normal: S1, S2 - Gastrointestinal General gastrointestinal: Present: normal bowel sounds, soft - Integumentary Integumentary: Present: normal turgor - Musculoskeletal Musculoskeletal: Present: gait normal - Psychiatric Psychiatric: Present: A&O x's 3, appropriate affect, intact judgment & insight - Additional findings Additional findings: breast exam: BRA: 38DD inspection: bilateral grade 3 ptosis palpation: right breast: Multiple positional exam fibrocystic changes, no dominant masses or nodules of concern Right axilla: No adenopathy of concern Left breast: Multi-positional exam no dominant masses or nodules of concern, fibrocystic changes Left axilla: No adenopathy of concern Patient does state that time she has some back pain related to the heaviness of her breasts, and does have bilateral shoulder notching from her bras Assessment and Plan Assessment: Impression: REYNOLDS-nonalcoholic fatty liver disease cardiac anomaly Fibrocystic breast changes Increased risk of breast cancer as per Cate risk analysis/discussed risk reduction with antihormone therapy and the patient is not interested at this time Recent bilateral mammogram benign BIRADS 2 Macromastia Plan: 1. Repeat bilateral mammogram in 1 year 2. Patient to call sooner if any questions or concerns CC: DR. Rosales encounter 20 minutes, > 50% of time in planning and counselling
== END | disposition home or self-care (01) ==
LOC: WWCWWP 10:29
PROVIDERS: ATTEND Surgery
DX: Z53.9 Procedure and treatment not carried out, unspecified reason (principal)

== ENCOUNTER → 2020-12-17 | Outpatient (CLI) | payer MEDICARE, OTHER ==
[2020-12-17 10:56] LABS: HCT 42.2 % (34.0-46.0); HGB 13.7 gm/dL (11.4-16.0); MCH 29.2 pg (25.0-35.0); MCHC 32.5 g/dL (31.0-37.0); MCV 89.8 fL (80.0-100.0); Mean Platelet Volume 6.8; Platelet Count 245 k/uL (150-450); WBC 5.9 k/uL (3.8-10.6)
[2020-12-17 16:58] LABS: African American GFR (CKD) 88.4 (60.0-200.0); Albumin 5.1 g/dL (3.80-4.90); Albumin/Globulin Ratio 2.55 (1.60-3.17); Anion Gap 9.9 mmol/L (4.00-12.00); Calcium 10.6 mg/dL (8.7-10.3); Carbon Dioxide 26.1 mmol/L (21.6-31.8); Chol/HDL Ratio 3.84; LDL Cholesterol,Calculated 163.4 mg/dL (0.0-131.0); Non-African American GFR(CKD) 76.3 (60.0-200.0); Potassium 4.1 mmol/L (3.5-5.5); Total Bilirubin 0.6 mg/dL (0.2-1.2); Total Protein 7.1 g/dL (6.2-8.2); VLDL Calculation 32.6 mg/dL (5.00-40.00)
[2020-12-18 16:19] LABS: Hepatitis A Antibody IgM Non-Reactive (Non-Reactive); Hepatitis B Core IgM Non-Reactive (Non-Reactive); Hepatitis B Surface Antigen Non-Reactive (Non-Reactive); Hepatitis C IgG Antibody Non-Reactive (Non-Reactive)
== END | disposition home or self-care (01) ==
LOC: LABWHC1 09:50
PROVIDERS: ATTEND Physician Assistant
DX: R53.82 Chronic fatigue, unspecified (principal); R94.5 Abnormal results of liver function studies; D64.9 Anemia, unspecified; E55.9 Vitamin D deficiency, unspecified; E78.2 Mixed hyperlipidemia
CPT/HCPCS: 36415; 80053; 80061; 80074; 82306; 82607; 83540; 84439; 84443; 84481; 85027; 86308

== ENCOUNTER → 2020-12-24 | Outpatient (CLI) | payer MEDICARE, OTHER ==
--- NOTE | 2020-12-25 08:08 | CT ---
EXAMINATION TYPE: CT ChestAbdPelvis w con DATE OF EXAM: 12/24/2020 COMPARISON: CT abdomen and pelvis May 03, 2018. CT aorta October 30, 2016. MRI liver September 02, 2019 HISTORY: Abdomen pain, renal disease. Sx hx gallbladder, hysterectomy. Pt states she has hx fatty theresa er. Chest pain. CT DLP: 950.80 mGycm. Automated Exposure Control for Dose Reduction was Utilized. CONTRAST: CT scan of the thorax, abdomen and pelvis is performed with oral and with IV Contrast, patient inject ed with 100 mL of Isovue 300. FINDINGS: LUNGS: Mild linear scarring in the bases redemonstrated. No suspicious nodules or masses. MEDIASTINUM: There are no greater than 1 cm hilar or mediastinal lymph nodes. No pericardial effusi on is seen. Mild cardiomegaly. There is left-sided arch. 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 Mild ascending aortic aneurysm up to 3.7 cm in diameter. Mode rate right atrial dilatation. Heterogeneity left thyroid lobe, possible underlying nodule, follow-up advised. OTHER: No additional significant abnormality is seen. LIVER/GB: Visualized liver is heterogeneously hypodense consistent with diffuse fatty infiltration. M ild hepatomegaly with prominent right hepatic lobe redemonstrated. Gallbladder now surgically absent PANCREAS: No significant abnormality is seen. SPLEEN: No significant abnormality is seen. ADRENALS: No significant abnormality is seen. KIDNEYS: Occasional scattered simple-appearing thin-walled cysts throughout both kidneys again seen. Stable 4 mm nonobstructing calculus midpole right kidney coronal image 35. Symmetric cortical medulla ry uptake and excretion with mild/moderate right greater than left pyelocaliectasis but no obstructin g ureteral calculi or hydroureter identified. BOWEL: Oral contrast did not reach level of terminal ileum making evaluation of distal bowel slightly suboptimal. Additional smaller large bowel dilatation.. GENITAL ORGANS: Uterus surgically absent similar to prior. LYMPH NODES: No greater than 1cm abdominal or pelvic lymph nodes are appreciated. OSSEOUS STRUCTURES: Grade 1 anterolisthesis L4 on L5. Moderate to severe disc space narrowing L4-L5 l evel. Moderate disc space narrowing L3-L4 level. OTHER: No significant additional abnormality is seen. IMPRESSION: No new or acute findings identified. Advise thyroid ultrasound to assess for possible le ft-sided thyroid nodules.
== END | disposition home or self-care (01) ==
LOC: RADCTMAIN 14:23
PROVIDERS: ATTEND Internal Medicine
DX: N28.9 Disorder of kidney and ureter, unspecified (principal); R10.9 Unspecified abdominal pain
CPT/HCPCS: 71260; 74177; Q9967

== ENCOUNTER → 2020-12-29 | Outpatient (CLI) | payer MEDICARE, OTHER ==
--- NOTE | 2020-12-29 14:37 | US ---
EXAMINATION TYPE: US thyroid st tissue head/neck DATE OF EXAM: 12/29/2020 COMPARISON: NONE CLINICAL HISTORY: R22.0 Swelling, mass, palpable abnormality, neck. GLAND SIZE: Right Lobe: 5.3 x 2.0 x 2.1 cm Overall Parenchyma: homogenous Left Lobe: 5.1 x 2.2 x 2.1 cm Overall Parenchyma: homogeneous Isthmus Thickness: 0.2 cm NODULES RIGHT: # of nodules measured on right: 0 LEFT: # of nodules measured on left: 1 1. 2.6 x 1.6 x 1.8 cm solid or almost completely solid, anechoic nodule, which is wider than tall, w ith lobulated or irregular margins, without echogenic foci. No Prior ISTHMUS: # of nodules measured in the isthmus: 0 Bilateral neck scanned, no evidence of lymphadenopathy. IMPRESSION: 1. Prominently solid nodule left thyroid lobe. Consider tissue diagnosis.
== END | disposition home or self-care (01) ==
LOC: RADUSWWP 14:01
PROVIDERS: ATTEND Internal Medicine
DX: E04.1 Nontoxic single thyroid nodule (principal)
CPT/HCPCS: 76536

== ENCOUNTER → 2021-05-04 | Outpatient (CLI) | payer MEDICARE, OTHER ==
[2021-05-04 16:03] LABS: Basophils # (A) 0.04 X 10*3/uL (0.00-0.10); Basophils % (A) 0.5 %; Eosinophils # (A) 0.07 X 10*3/uL (0.04-0.35); Eosinophils % (A) 0.9 %; HCT 40.3 % (37.2-46.3); HGB 13.2 g/dL (12.0-15.0); Lymphocytes # (A) 2.53 X 10*3/uL (0.90-5.00); Lymphocytes % (A) 33.3 %; MCH 29.4 pg (27.0-32.0); MCHC 32.8 g/dL (32.0-37.0); MCV 89.8 fL (80.0-97.0); Monocytes # (A) 0.45 X 10*3/uL (0.20-1.00); Monocytes % (A) 5.9 %; Neutrophils # (A) 4.45 X 10*3/uL (1.80-7.70); Neutrophils % (A) 58.7 %; Platelet Count 232 X 10*3/uL (140-440); RBC 4.49 X 10*6/uL (4.10-5.20); RDW 13.5 % (11.5-14.5); WBC 7.59 X 10*3/uL (4.50-10.00)
[2021-05-04 20:33] LABS: African American GFR (CKD) 76.7 (60.0-200.0); Albumin 4.6 g/dL (3.80-4.90); Anion Gap 10.1 mmol/L (4.00-12.00); BUN/Creat Ratio 24.44 Ratio (12.00-20.00); Carbon Dioxide 22.9 mmol/L (21.6-31.8); Chol/HDL Ratio 2.82; Globulin 2.3 g/dL (1.6-3.3); Non-African American GFR(CKD) 66.2 (60.0-200.0); Potassium 4.2 mmol/L (3.5-5.5); Total Bilirubin 0.6 mg/dL (0.2-1.2); Total Protein 6.9 g/dL (6.2-8.2)
== END | disposition home or self-care (01) ==
LOC: LABWHC1 09:27
PROVIDERS: ATTEND Internal Medicine
DX: L04.0 Acute lymphadenitis of face, head and neck (principal); E78.5 Hyperlipidemia, unspecified; R94.5 Abnormal results of liver function studies
CPT/HCPCS: 36415; 80053; 80061; 85025

== ENCOUNTER → 2021-07-16 | Outpatient (CLI) | payer MEDICARE, OTHER ==
--- NOTE | 2021-07-16 12:37 | XR ---
EXAMINATION TYPE: XR foot limited LT DATE OF EXAM: 07/16/2021 CLINICAL HISTORY: Pain. TECHNIQUE: Frontal and lateral images of the left foot are obtained. COMPARISON: None FINDINGS: Demineralization is present. There is no acute fracture/dislocation evident in the left fo ot. The joint spaces in the left foot appear within normal limits. The overlying soft tissue appear s unremarkable. IMPRESSION: As above.
--- NOTE | 2021-07-16 13:47 | XR ---
EXAMINATION TYPE: XR Hip Complete RT DATE OF EXAM: 07/16/2021 CLINICAL HISTORY: Right hip pain. TECHNIQUE: AP and frogleg views of the right hip are obtained. COMPARISON: CT abdomen and pelvis 2018. FINDINGS: There is no acute fracture/dislocation evident in the right hip. Cvaf-rw-unddikah axial hazel int space loss remains present. No significant spurring. The overlying soft tissue appears unremarkab le. IMPRESSION: As above.
--- NOTE | 2021-07-16 14:02 | XR ---
EXAMINATION TYPE: XR cervical spine limited DATE OF EXAM: 07/16/2021 TECHNIQUE: Frontal, lateral, and open mouth view of the cervical spine are obtained. HISTORY: NERVE PAIN neck pain. COMPARISON: MRI cervical spine November 15, 2016 FINDINGS: The cervical spine is visualized in its entirety from C1 thru the top of T1 level, there i s grade 1 anterolisthesis C3 on C4. There is grade 1 retrolisthesis C5 on C6. There is grade 1 marylu listhesis C7 on T1. Vertebral body heights are maintained. Moderate to severe narrowing with mild to moderate anterior spurring C5-C6 and C6-C7 level. Overlying soft tissue is unremarkable. C1-C2 articu lation is satisfactory and open mouth frontal view. IMPRESSION: As above. Interval spondylolisthesis and degenerative progressive changes from 2016 MRI
[2021-07-16 15:25] LABS: HCT 42.8 % (37.2-46.3); HGB 13.7 g/dL (12.0-15.0); MCV 90.7 fL (80.0-97.0); Mean Platelet Volume 9.7 fL (9.5-12.2); Platelet Count 238 X 10*3/uL (140-440); RBC 4.72 X 10*6/uL (4.10-5.20); RDW 13.1 % (11.5-14.5); WBC 4.78 X 10*3/uL (4.50-10.00)
[2021-07-16 16:41] LABS: ALT 84 U/L (8-44); AST 54 U/L (13-35); Albumin/Globulin Ratio 1.85 (1.60-3.17); Alkaline Phosphatase 107 U/L (41-126); Bilirubin, Conjugated <0.20 mg/dL (0.20-0.40); C Reactive Protein <0.4 mg/dL (0.0-0.8); Chol/HDL Ratio 3.72; Cholesterol 227 mg/dL (0-200); Globulin 2.6 g/dL (1.6-3.3); LDL Cholesterol,Calculated 122.8 mg/dL (0.0-131.0); Rheumatoid Factor, Qnt 9 IU/mL (0-15); Total Bilirubin 0.6 mg/dL (0.2-1.2); Total Protein 7.4 g/dL (6.2-8.2)
[2021-07-16 16:59] LABS: Erythrocyte Sedimentation Rate 15 mm/Hr (0-30)
== END | disposition home or self-care (01) ==
LOC: LABWHC1 09:44
PROVIDERS: ATTEND Internal Medicine
DX: E55.9 Vitamin D deficiency, unspecified (principal); R53.82 Chronic fatigue, unspecified; E78.5 Hyperlipidemia, unspecified; M54.2 Cervicalgia; M79.672 Pain in left foot
CPT/HCPCS: 36415; 72040; 73502; 80061; 80076; 82306; 84425; 84439; 84443; 85027; 85652; 86038; 86140; 86431

== ENCOUNTER → 2021-08-06 | Outpatient (CLI) | payer MEDICARE, OTHER ==
--- NOTE | 2021-08-09 11:23 | MM ---
Reason for exam: screening (asymptomatic). Last mammogram was performed 1 year ago. History: Patient is postmenopausal. Family history of breast cancer in mother at age 75, breast cancer in maternal grandmother at age 60, breast cancer in maternal aunt at age 60, and breast cancer in cousin. Benign excisional biopsy of the right breast, 1990. Took estrogen beginning at age 45. Physical Findings: A clinical breast exam by your physician is recommended on an annual basis and results should be correlated with mammographic findings. MG 3D Screening Mammo W/Cad Bilateral CC and MLO view(s) were taken. Prior study comparison: August 04, 2020, bilateral MG 3d diag mammo w/cad YANDY. August 02, 2019, bilateral MG 3d screening mammo w/cad. The breast tissue is heterogeneously dense. This may lower the sensitivity of mammography. There are benign appearing round calcifications in the left breast. There is no discrete abnormality. ASSESSMENT: Benign, BI-RAD 2 RECOMMENDATION: Routine screening mammogram of both breasts in 1 year.
== END | disposition home or self-care (01) ==
LOC: RADMAMWWP 09:44
PROVIDERS: ATTEND Surgery
DX: Z12.31 Encounter for screening mammogram for malignant neoplasm of breast (principal)
CPT/HCPCS: 77063; 77067

== ENCOUNTER → 2021-08-12 | Outpatient (CLI) | payer MEDICARE, OTHER ==
--- NOTE | 2021-08-13 05:43 | MR ---
EXAMINATION TYPE: MR mir/lsshelton wo con DATE OF EXAM: 08/12/2021 COMPARISON: 11/15/2016 HISTORY: Neck, lower back pain. RUE/RLE radiculopathy. Multiplanar multiecho imaging of the cervical and lumbar spine without contrast. Cervical spine Cervical vertebra show fairly normal alignment. There is degenerative disc space narrowing at C5-6 an d C6-7. There is mild spurring of the endplates at C5-6 and C6-7. There is no significant spinal sten osis. Spinal canal measures 8 mm at C5-6 which is the narrowest point. The facet joints are intact. T here is mild hypertrophic facet arthropathy. Cervical spinal cord shows normal signal pattern. There is no edema. The brainstem appears intact. There is no sign of cervical paraspinal mass. IMPRESSION: C5-6 and C6-7 spondylotic changes without significant spinal stenosis. No change compared to old exam . Lumbar spine. There is a first-degree L4-5 spondylolisthesis. There is moderate narrowing of disc spaces at L3-4 an d L4-5. There is severe spinal stenosis at L4-5 due to subluxation and facet arthropathy. There is si milar mild stenosis at L3-4. There is no spinal stenosis in the remainder of the lumbar spine. There is no lumbar compression fracture. I see no focal bone destruction. There is no lumbar paraspinal mas s. IMPRESSION: There is L3-4 L4-5 spondylolisthesis. There is severe spinal stenosis at L4-5 and less severe stenosi s at L3-4. L4-5 spinal stenosis unchanged compared to old exam. Relatively mild spinal stenosis at L3 -4 slightly increased compared to old exam.
== END | disposition home or self-care (01) ==
LOC: RADMRIMAIN 07:28
PROVIDERS: ATTEND Internal Medicine
DX: M48.061 Spinal stenosis, lumbar region without neurogenic claudication (principal); M43.16 Spondylolisthesis, lumbar region
CPT/HCPCS: 72141; 72148

== ENCOUNTER → 2021-08-17 | Outpatient (CLI) | payer MEDICARE, OTHER ==
--- NOTE | 2021-08-17 21:34 | MR ---
EXAMINATION TYPE: MR brain wo/w con DATE OF EXAM: 08/17/2021 COMPARISON: 11/10/2015 HISTORY: Brain Lesion CONTRAST: Performed utilizing 7 mL intravenous Gadavist gadolinium contrast. TECHNIQUE: Multiplanar, multiecho imaging on a 3.0 Arin magnet is performed through the brain. Stud y is performed within 24 hours of arrival to the hospital. The craniovertebral junction is normal. The pituitary is normal. Diffusion-weighted imaging is performed. No abnormal hyperintensity is present to suggest an acute i ntracranial infarct or acute ischemic change. Periventricular white matter hyperintensity is present, likely on the basis of chronic white matter i schemic changes. A few scattered subcortical white matter changes are present. Internal auditory canals and cerebellopontine angles are normal. Optic chiasm is visualized appears n ormal. Normal flow voids are within the intracranial cerebral vasculature. No abnormal enhancement is evident. IMPRESSIONS: 1. Chronic appearing periventricular and deep white matter changes.
== END | disposition home or self-care (01) ==
LOC: RADMRIMAIN 11:53
PROVIDERS: ATTEND Internal Medicine
DX: G93.9 Disorder of brain, unspecified (principal)
CPT/HCPCS: 70553; A9585

== ENCOUNTER → 2021-08-19 | Outpatient (CLI) | payer MEDICARE, OTHER ==
[2021-08-19 09:58] VITALS: BP 120/71; PULSE 58; TEMP 97.8
--- NOTE | 2021-08-19 10:12 | P.PN ---
Subjective Progress Note Date: 08/19/21 Principal diagnosis: screening breast examination/fibrocystic disease fibrocystic breast changes Deandra is a 66-year-old white female who presents for breast evaluation. She had a bilateral screening mammogram done on 08-06-21. This was felt to be benign BIRADS 2 and follow-up diagnostic mammogram of both breast 1 year was recommended. The patient does not feel any lumps masses or nodules in her breast. The patient is not complaining of any nipple discharge or skin changes. She is not complaining of any pain in her breast. The patient had a right breast biopsy at the age of 36 which was benign Patient had COVID mid September 2020 with joint pain, was not hospitalized, did not lose taste or smell; She did not have the vaccine Cate risk evaluation: 5 year breast cancer risk 4% compared with 2.1% for average 68-year-old woman Lifetime cancer risk 12.7% compared to 7.2% over 68-year-old woman Family history: 1. mother: breast cancer, endometrial cancer 2. maternal grandmother: breast cancer 3. maternal aunt: breast cancer 4. paternal cousin: breast cancer pre-menopausal Hormonal History: menarche: 11 , breast fed: yes, age at first 17 menopause: BENJY at 45 ( for endometriosis) BCP: none hormones: 10 years Surgical history: 1. Total abdominal hysterectomy 2. Right breast lumpectomy for benign disease at the age of 36 3. tonsil and adenoids 4. umbilical hernia 5. pilonidal cyst 6. tubal-ligation 7. septum surgery 8 cataracts 9. liver biopsy 10. gallbladder Medical History: 1.REYNOLDS-nonalcoholic fatty liver disease 2. cardiac anomaly 3. Back pain/severe spinal stenosis at L4-5 and stenosis at L3-4 4. Viral encephalopathy at 22 a recent MRI done ; chronic appearing periventricular and deep white matter changes Social History: smoke: none alcohol: none drugs: none - Constitutional Constitutional: Denies chills, Denies fever - EENT Eyes: denies blurred vision, denies pain Ears: bilateral: decreased hearing, deny: tinnitus Ears, nose, mouth and throat: Denies headache, Denies sore throat - Breasts Breasts: bilateral: as per HPI - Cardiovascular Comment: congenital cardiac anomaly - Respiratory Respiratory: Denies cough - Gastrointestinal Gastrointestinal: Denies abdominal pain, Denies diarrhea, Denies nausea, Denies vomiting - Genitourinary (Female) Genitourinary: Denies dysuria, Denies hematuria - Menstruation Menstruation: Reports post hysterectomy - Musculoskeletal Comment: arthritis Musculoskeletal: Reports myalgias - Integumentary Comment: none - Neurological Neurological: Denies numbness, Denies weakness - Psychiatric Psychiatric: Denies anxiety, Denies depression - Endocrine Endocrine: Denies fatigue, Denies weight change - Hematologic/Lymphatic Comment: none - Allergic/Immunologic Allergic/Immunologic: Reports seasonal allergies Objective - Vital Signs Vital signs: Vital Signs Temp 97.8 F 08/19/21 09:53 Pulse 58 L 08/19/21 09:53 Resp BP 120/71 08/19/21 09:53 Pulse Ox 99 08/19/21 09:53 Intake & Output 08/18/21 08/19/21 08/19/21 18:59 06:59 18:59 Weight 72.575 kg - Exam BMI 26.6 - Constitutional General appearance: Present: cooperative - EENT Eyes: Present: EOMI ENT: Present: hearing grossly normal - Respiratory Respiratory: bilateral: CTA - Cardiovascular Rhythm: regular Heart sounds: normal: S1, S2 - Gastrointestinal General gastrointestinal: Present: soft - Integumentary Integumentary Comment(s): scaly lesion right chest wall Integumentary: Present: normal turgor - Psychiatric Psychiatric: Present: A&O x's 3, appropriate affect, intact judgment & insight - Additional findings Additional findings: Breast Exam: BRA: 38DD; macromastia inspection: right breast slightly larger than left breast, bilateral grade 3 ptosis palpation: right breast: Multi-positional exam fibrocystic changes, no dominant masses or nodules of concern Right axilla: No adenopathy of concern Left breast multiple positional exam fibrocystic changes, no dominant masses or nodules of concern Left axilla: No adenopathy of concern bilateral fungal infection under each breast Assessment and Plan Assessment: Impression: 1.REYNOLDS-nonalcoholic fatty liver disease 2. cardiac anomaly 3. Back pain/severe spinal stenosis at L4-5 and stenosis at L3-4 4. Viral encephalopathy at 22 a recent MRI done ; chronic appearing periventricular and deep white matter changes 5. Bilateral fibrocystic breast changes 6. Fungal infection under both breasts 7. Bilateral macromastia exacerbating back pain Plan: 1. Nystatin apply to affected areas twice a day 2. Repeat bilateral mammogram in 1 year with physician exam at that time 3. Medical management of medical conditions 4. Patient is going to consider breast reduction CC: Dr. Rosales
== END ==
LOC: WWCWWP 09:28
PROVIDERS: ATTEND Surgery
DX: Z53.9 Procedure and treatment not carried out, unspecified reason (principal)

== ENCOUNTER → 2021-09-16 | Outpatient (CLI) | payer MEDICARE, OTHER ==
--- NOTE | 2021-09-16 11:50 | XR ---
EXAMINATION TYPE: XR chest 2V DATE OF EXAM: 09/16/2021 COMPARISON: 10/30/2016 HISTORY: Shortness of breath TECHNIQUE: Frontal and lateral views of the chest are obtained. FINDINGS: Scattered senescent parenchymal changes noted. Hyperinflation compatible with COPD. No evidence for infiltrate. No evidence for atelectasis. Heart size is stable. Mediastinal structures are stable and grossly unremarkable. No evidence for hilar prominence. Degenerative changes dorsal spine. IMPRESSION: 1. No evidence for acute pulmonary disease.
[2021-09-16 12:14] LABS: INR 0.9 (<1.2); Partial Thromboplastin Time 24.6 sec (22.0-30.0); Prothrombin Time 9.9 sec (9.0-12.0)
[2021-09-16 19:18] LABS: HCT 43.2 % (37.2-46.3); HGB 13.8 g/dL (12.0-15.0); MCH 29.1 pg (27.0-32.0); MCHC 31.9 g/dL (32.0-37.0); MCV 90.9 fL (80.0-97.0); Platelet Count 246 X 10*3/uL (140-440); RBC 4.75 X 10*6/uL (4.10-5.20); RDW 13.2 % (11.5-14.5); WBC 5.43 X 10*3/uL (4.50-10.00)
[2021-09-16 20:31] LABS: Albumin/Globulin Ratio 2.13 (1.60-3.17); BUN/Creat Ratio 22.48 Ratio (12.00-20.00); Blood Urea Nitrogen 18.3 mg/dL (9.0-27.0); Calcium 10.2 mg/dL (8.7-10.3); Carbon Dioxide 23.3 mmol/L (21.6-31.8); Globulin 2.3 g/dL (1.6-3.3); Non-African American GFR(CKD) 74.2 (60.0-200.0); Total Bilirubin 0.3 mg/dL (0.30-1.20); Total Protein 7.3 g/dL (6.2-8.2)
== END | disposition home or self-care (01) ==
LOC: LABWHC1 11:15
PROVIDERS: ATTEND Internal Medicine
DX: Z01.818 Encounter for other preprocedural examination (principal)
CPT/HCPCS: 36415; 71046; 80053; 85027; 85610; 85730

== ENCOUNTER → 2022-02-10 | Outpatient (CLI) | payer MEDICARE, OTHER ==
--- NOTE | 2022-02-10 13:13 | US ---
EXAMINATION TYPE: US thyroid st tissue head/neck DATE OF EXAM: 02/10/2022 COMPARISON: 12/29/2020 CLINICAL HISTORY: E04.2 MULTINODULAR GOITER. Follow up to prior nodule, History of begin left thyroid nodule biopsy. GLAND SIZE: Right Lobe: 5.2 x 1.9 x 1.6 cm Overall Parenchyma: heterogenous Left Lobe: 4.2 x 2.0 x 1.9 cm Overall Parenchyma: heterogeneous Isthmus Thickness: 0.3 cm NODULES Multiple nodules seen largest measured. RIGHT: # of nodules measured on right: 2 1. 0.4 X 0.4 x 0.4 cm, upper mid, mixed cystic and solid, hypoechoic nodule, which is wider than ta ll, with ill-defined margins, without echogenic foci. 2. 0.5 X 0.3 x 0.3 cm, lower mid, spongiform, hypoechoic nodule, which is wider than tall, with ill -defined margins, without echogenic foci. LEFT: # of nodules measured on left: 2 1. 2.2 X 1.5 x 1.4 cm, upper mid, spongiform, hypoechoic nodule, which is wider than tall, with lob ulated or irregular margins, without echogenic foci. Prior size: 2.6 x 1.6 x 1.8 cm 2. 0.7 X 0.6 x 0.6 cm, lower mid, spongiform, hypoechoic nodule, which is wider than tall, with il l-defined margins, without echogenic foci. ISTHMUS: # of nodules measured in the isthmus: 0 Bilateral neck scanned, Right neck lymph nodes measuring 1.) 0.8 x 0.4 x 0.3cm 2.) 1.1 x 0.6 x 0.3cm. Left neck lymph node measuring 1.2 x 1.3 x 0.7cm Multinodular with bilateral neck Lymph nodes noted. IMPRESSION: Nonspecific thyroid heterogeneity and nodularity as discussed above.
== END | disposition home or self-care (01) ==
LOC: RADUSWWP 11:49
PROVIDERS: ATTEND Internal Medicine
DX: E04.2 Nontoxic multinodular goiter (principal)
CPT/HCPCS: 76536

== ENCOUNTER → 2022-03-09 | Outpatient (CLI) | payer MEDICARE, OTHER ==
--- NOTE | 2022-03-09 17:15 | BD ---
EXAMINATION TYPE: Axial Bone Density DATE OF EXAM: 03/09/2022 COMPARISON: NONE CLINICAL HISTORY: 66 years year old Female. ICD-10 CODE: Z78.0 post menopausal Height: 64 Weight: 154.7 FRAX RISK QUESTIONS: Alcohol (3 or more units per day): no Family History (Parent hip fracture): no Glucocorticoids (More than 3mos): no (Ex: prednisone, prednisolone, methylprednisolone, dexamethasone, and hydrocortisone). History of Fracture in Adulthood: no Secondary Osteoporosis: 1. Type 1 Diabetes: no 2. Hyperthyroidism: no 3. Menopause before 45: no 4. Malnutrition: no 5. Chronic liver disease: yes Rheumatoid Arthritis: no Current Tobacco Use: no RISK FACTORS HISTORY OF: Surgery to Spine/Hip(right/left)/Wrist (right/left): spine When: 2021 Family History of Osteoporosis: yes Active: no Diet low in dairy products/other sources of calcium: yes Postmenopausal woman: yes Lost more than 2 inches in height since high school: no MEDICATIONS: Additional History: EXAM MEASUREMENTS: Bone mineral densitometry was performed using the [employer] System. Bone mineral density about the R hip (g/cm2): 0.675 Bone mineral density about the L hip (g/cm2): 0.646 T Score values are as follows: -----R Neck: -2.6 -----L Neck: -2.8 -----R Total: -2.3 -----L Total: -2.6 Bone mineral density has: decreased -7.7 % since study of: 11.14.2019 Bone mineral density about the L Wrist (g/cm2): 0.434 T Score values are as follows: -----Dist. R+U: -4.8 -----Prox. R+U: -3.4 -----Radius total: -4.0 Bone mineral density : baseline FRAX%s: The graph provided illustrates a 16.9% chance for a major osteoporotic fx and a 4.9% chance f or the hips probability for fx in 10 years time. IMPRESSION: Osteoporosis (T Score less than -2.5). There is increased fracture risk and therapy is usually indicated based on age. Re-Screen 1-2 years. NOTE: T-SCORE=SD OF THE YOUNG ADULT MEAN.
== END | disposition home or self-care (01) ==
LOC: RADBDWWP 09:15
PROVIDERS: ATTEND Internal Medicine
DX: M81.0 Age-related osteoporosis without current pathological fracture (principal); Z78.0 Asymptomatic menopausal state
CPT/HCPCS: 77080

== ENCOUNTER → 2022-03-23 | Outpatient (CLI) | payer MEDICARE, OTHER ==
[2022-03-23 15:33] LABS: ALT 39 U/L (8-44); AST 28 U/L (13-35); Albumin 4.5 g/dL (3.8-4.9); Albumin/Globulin Ratio 1.65 (1.60-3.17); Alkaline Phosphatase 118 U/L (41-126); BUN/Creat Ratio 22.27 Ratio (12.00-20.00); Blood Urea Nitrogen 17.3 mg/dL (9.0-27.0); Carbon Dioxide 22.8 mmol/L (20.0-27.5); Chloride 104 mmol/L (96-109); Chol/HDL Ratio 3.16 Ratio; Globulin 2.7 g/dL (1.6-3.3); Glucose 93 mg/dL (70-110); LDL Cholesterol,Calculated 104.2 mg/dL (0.0-131.0); Non-African American GFR(CKD) 78.5 (60.0-200.0); Potassium 4.1 mmol/L (3.5-5.5); Sodium 138 mmol/L (135-145); Total Protein 7.2 g/dL (6.2-8.2)
== END | disposition home or self-care (01) ==
LOC: LABWHC1 08:56
PROVIDERS: ATTEND Internal Medicine Interventional Cardiology
DX: E78.2 Mixed hyperlipidemia (principal)
CPT/HCPCS: 36415; 80053; 80061

== ENCOUNTER → 2022-03-25 | Outpatient (CLI) | payer MEDICARE, OTHER ==
[~2022-03-25] MED LIST changes: -DEXAMETHASONE SOD PHOSPHATE 10 MG/ML 1 ML VIAL IV ONE; -HEPARIN SODIUM,PORCINE 5,000 UNIT/ML 1 ML VIAL SQ ONE; -HYDROmorphone 0.5 MG/0.5 ML SYRINGE IVP PRN; -LACTATED RINGERS 1,000 ML IV SCH; -MIDAZOLAM 2 MG/2 ML VIAL IV PRN; -ONDANSETRON 4 MG/2 ML VIAL IVP ONE; +SODIUM CHLORIDE 0.9% 500 ML 500 ML in EMPTY BAG 1 BAG IV PRN; +ZOLEDRONIC ACID 5 MG in SODIUM CHLORIDE 0.9% 100 ML IV NR
[2022-03-25 10:59] VITALS: BP 155/82; PULSE 71; RESP 16; TEMP 98.1
== END | disposition home or self-care (01) ==
LOC: PROCWHC3 10:27
PROVIDERS: ATTEND Internal Medicine
DX: M81.0 Age-related osteoporosis without current pathological fracture (principal)
CPT/HCPCS: 96365; J3489

== ENCOUNTER → 2022-04-04 | Outpatient (CLI) | payer MEDICARE, OTHER ==
--- NOTE | 2022-04-04 15:49 | XR ---
EXAMINATION TYPE: XR lumbar spine 2 or 3V DATE OF EXAM: 04/04/2022 CLINICAL HISTORY: Low back pain after recent fall injury. TECHNIQUE: Frontal and lateral images of the lumbar spine are obtained. COMPARISON: None MRI lumbar spine August 12, 2021 FINDINGS: There are 5 lumbar type vertebral bodies identified. Posterior interpedicular rods and scr ews L3-L5 level are now seen. There is grade 1 anterolisthesis L3 on L4 slightly more prominent from prior MRI and stable grade 1 anterolisthesis L4 on L5. Metallic disc material right L4-L5 level is no w seen anteriorly. Moderate disc space narrowing L3-L4 level redemonstrated. Vertebral body heights a nd disc space heights above L3 vertebra are stable and satisfactory. No acute fracture or dislocation . Overlying soft tissue is unremarkable. IMPRESSION: As above.
--- NOTE | 2022-04-04 18:37 | XR ---
EXAMINATION TYPE: XR wrist limited bilateral DATE OF EXAM: 04/04/2022 COMPARISON: NONE INDICATION: Pain/fall TECHNIQUE: Standard views of the wrist joints. FINDINGS: Osteopenia. Marked degenerative changes of the triscaphe articulations. Milder degenerative changes o f the first carpometacarpal articulations. 2 mm bone fragment is seen at the dorsal aspect of the left third carpometacarpal articulation, possi ketty degenerative rather than an avulsion fracture, please correlate clinically. No definite acute fracture line identified otherwise. Suspected cystic changes at the proximal ulnar aspect of the right lunate. IMPRESSION: As above.
--- NOTE | 2022-04-04 18:51 | XR ---
EXAMINATION TYPE: XR cervical spine limited DATE OF EXAM: 04/04/2022 COMPARISON: X-ray dated 07/16/2021 INDICATION: Pain/Full TECHNIQUE: Standard 3 views of the cervical spine. FINDINGS: Mild retrolisthesis of C5 over C6 and minimal anterolisthesis of C3 over C4 and C4 over C5. No defini te vertebral body collapse or acute displaced fracture. Degenerative changes of the cervical spine with multilevel opposing endplate osteophytosis, degenerat ed discs and uncovertebral osteoarthropathy, most evident at C5-6 and C6-7 levels. Multilevel facet osteoarthropathy is also noted. Suboptimal open-mouth view. Aortic atherosclerotic c alcifications. IMPRESSION: No obvious traumatic bony injury of the cervical spine. Degenerative changes and incidental findings as described above.
== END | disposition home or self-care (01) ==
LOC: RADXRMAIN 10:16
PROVIDERS: ATTEND Internal Medicine
DX: M25.531 Pain in right wrist (principal); M25.532 Pain in left wrist; M54.50 Low back pain, unspecified
CPT/HCPCS: 72040; 72100

== ENCOUNTER → 2022-08-15 | Outpatient (CLI) | payer MEDICARE, OTHER ==
--- NOTE | 2022-08-16 08:57 | MM ---
Reason for Exam: Screening (asymptomatic). Last screening mammogram was performed 12 month(s) ago. Patient History: Menarche at age 11. First Full-Term at age 17. Left ovary removed at age 45. Right ovary removed at age 45. Hysterectomy at age 45. Postmenopausal. Estrogen, from age 45 until age 55. 1990, Benign Excisional Biopsy on the right side. Maternal grandmother had breast cancer, age 60. Maternal cousin had breast cancer. Maternal aunt had breast cancer, age 60. Mother had breast cancer, age 75. Risk Values: Cate 5 year model risk: 3.8%. NCI Lifetime model risk: 11.3%. Prior Study Comparison: 08/22/2019 Right Diagnostic Mammogram, [facility]. 08/04/2020 Bilateral Diagnostic Mammogram, [facility]. 08/06/2021 Bilateral Screening Mammogram, [facility]. Tissue Density: The breast tissue is heterogeneously dense. This may lower the sensitivity of mammography. Findings: Analyzed By CAD. There is no suspicious group of microcalcifications or new suspicious mass in either breast. Benign-appearing round calcifications within the left breast. No significant change from prior exams. Overall Assessment: Benign, BI-RAD 2 Management: Screening Mammogram of both breasts in 1 year. A clinical breast exam by your physician is recommended on an annual basis and results should be correlated with mammographic findings. Electronically signed and approved by: Zeferino Martinez D.O.
== END | disposition home or self-care (01) ==
LOC: RADMAMWWP 09:36
PROVIDERS: ATTEND Surgery
DX: Z12.31 Encounter for screening mammogram for malignant neoplasm of breast (principal)
CPT/HCPCS: 77063; 77067

== ENCOUNTER → 2022-08-19 | Outpatient (CLI) | payer MEDICARE, OTHER ==
[2022-08-19 10:48] VITALS: BP 120/66; PULSE 68; RESP 12; TEMP 98
--- NOTE | 2022-08-19 11:32 | P.PN ---
Subjective Progress Note Date: 08/19/22 Principal diagnosis: fibrocystic breast changes Deandra is a 67-year-old white female who presents for breast evaluation. She had a bilateral screening mammogram done on 08-15-22. This was felt to be benign BIRADS 2 and follow-up diagnostic mammogram of both breast 1 year was rené mmended. The patient does not feel any lumps masses or nodules in her breast. The patient is not complaining of any nipple discharge or skin changes. She is not complaining of any pain in her breast. The patient had a right breast biopsy at the age of 36 which was benign Patient had COVID mid September 2020 with joint pain, was not hospitalized, did not lose taste or smell; She did not have the vaccine Cate risk evaluation: 5 year breast cancer risk 3.8% lifetime risk: 11.3% We have discussed chemoprevention and she has declined. Family history: 1. mother: breast cancer, endometrial cancer 2. maternal grandmother: breast cancer 3. maternal aunt: breast cancer 4. paternal cousin: breast cancer pre-menopausal Hormonal History: menarche: 11 , breast fed: yes, age at first 17 menopause: BENJY at 45 ( for endometriosis) BCP: none hormones: 10 years Surgical history: 1. Total abdominal hysterectomy 2. Right breast lumpectomy for benign disease at the age of 36 3. tonsil and adenoids 4. umbilical hernia 5. pilonidal cyst 6. tubal-ligation 7. septum surgery 8 cataracts 9. liver biopsy 10. gallbladder 11. 3 low back surgeries Medical History: 1.REYNOLDS-nonalcoholic fatty liver disease 2. cardiac anomaly 3. Back pain/severe spinal stenosis at L4-5 and stenosis at L3-4 4. Viral encephalopathy at 22 a recent MRI done ; chronic appearing periventricular and deep white matter changes Social History: smoke: none alcohol: none drugs: none - Constitutional Constitutional: Denies chills, Denies fever - EENT Eyes: denies blurred vision, denies pain Ears: bilateral: decreased hearing, deny: tinnitus Ears, nose, mouth and throat: Denies headache, Denies sore throat - Breasts Breasts: bilateral: as per HPI - Cardiovascular Comment: congenital cardiac anomaly - Respiratory Respiratory: Denies cough - Gastrointestinal Gastrointestinal: Denies abdominal pain, Denies diarrhea, Denies nausea, Denies vomiting - Genitourinary (Female) Genitourinary: Denies dysuria, Denies hematuria - Menstruation Menstruation: Reports post hysterectomy - Musculoskeletal Comment: arthritis Musculoskeletal: Reports myalgias - Integumentary Comment: none - Neurological Neurological: Denies numbness, Denies weakness - Psychiatric Psychiatric: Denies anxiety, Denies depression - Endocrine Endocrine: Denies fatigue, Denies weight change - Hematologic/Lymphatic Comment: none - Allergic/Immunologic Allergic/Immunologic: Reports seasonal allergies Objective - Vital Signs Vital signs: Vital Signs Temp 98 F 08/19/22 10:42 Pulse 68 08/19/22 10:42 Resp 12 08/19/22 10:42 BP 120/66 08/19/22 10:42 Pulse Ox FiO2 Intake & Output 08/18/22 08/19/22 08/19/22 18:59 06:59 18:59 Weight 68.039 kg - Constitutional General appearance: Present: cooperative - EENT Eyes: Present: EOMI ENT: Present: hearing grossly normal - Neck Neck: Present: normal ROM - Respiratory Respiratory: bilateral: CTA - Cardiovascular Rhythm: regular Heart sounds: normal: S1, S2 - Integumentary Integumentary: Present: normal turgor - Musculoskeletal Musculoskeletal: Present: gait normal - Psychiatric Psychiatric: Present: A&O x's 3, appropriate affect, intact judgment & insight - Additional findings Additional findings: Breast Exam: [id number] Inspection: bilateral grade 3 ptosis palpation: Right breast: multipositional exam no dominate masses or nodules of concern right axilla: no adenopathy of concern left breast: multipositional exam no dominate masses or nodules of concern left axilla: no adenopathy of concern Assessment and Plan Assessment: Impression: fibrocystic breast changes Plan: bilateral mammogram in one year with exam follow up sooner if any concerns
== END | disposition home or self-care (01) ==
LOC: WWCWWP 10:21
PROVIDERS: ATTEND Surgery
DX: Z53.9 Procedure and treatment not carried out, unspecified reason (principal)

== ENCOUNTER → 2023-03-11 | Outpatient (CLI) | payer MEDICARE, OTHER ==
[2023-03-11 13:55] LABS: African American GFR (CKD) 79.4 (60.0-200.0); Albumin 4.7 g/dL (3.8-4.9); Albumin/Globulin Ratio 1.88 (1.60-3.17); Anion Gap 10.7 mmol/L (10.00-18.00); BUN/Creat Ratio 24.88 Ratio (12.00-20.00); Blood Urea Nitrogen 21.5 mg/dL (9.0-27.0); Calcium 10.1 mg/dL (8.7-10.3); Carbon Dioxide 23.5 mmol/L (20.0-27.5); Globulin 2.5 g/dL (1.6-3.3); Non-African American GFR(CKD) 68.5 (60.0-200.0); Potassium 3.8 mmol/L (3.5-5.5); T4, Free (Free Thyroxine) 0.95 ng/dL (0.800-1.800); Total Bilirubin 0.3 mg/dL (0.30-1.20); Total Protein 7.2 g/dL (6.2-8.2)
== END | disposition home or self-care (01) ==
LOC: LABWHC1 08:29
PROVIDERS: ATTEND Internal Medicine
DX: M81.0 Age-related osteoporosis without current pathological fracture (principal); E04.2 Nontoxic multinodular goiter; E55.9 Vitamin D deficiency, unspecified
CPT/HCPCS: 36415; 80053; 82306; 84439; 84443

== ENCOUNTER → 2023-04-10 | Outpatient (CLI) | payer MEDICARE, OTHER ==
[2023-04-10 11:31] VITALS: BP 121/73; PULSE 60; RESP 16; TEMP 97.3
== END ==
LOC: PROCWHC3 11:04
PROVIDERS: ATTEND Internal Medicine
DX: M81.0 Age-related osteoporosis without current pathological fracture (principal)
CPT/HCPCS: 96365; J3489

== ENCOUNTER → 2023-04-11 | Outpatient (CLI) | payer MEDICARE, OTHER ==
--- NOTE | 2023-04-11 15:09 | XR ---
EXAMINATION TYPE: XR cervical spine w flex/ext DATE OF EXAM: 04/11/2023 COMPARISON: None HISTORY: Spondylosis TECHNIQUE: 5 view cervical spine with flexion and extension views FINDINGS: Prevertebral space is normal. Anterior vertebral body spurring is present C5 C6 C7. Posteri or spinal lamellar line is intact. Vertebral body alignment appears normal in distention and neutral views. In the flexion view there i s a grade 1 spondylolisthesis of C3 anteriorly on C4 of 0.4 mm. Some mild anterior subluxation of C2 on C3 may be present at 2 mm. Similar subluxation appears to be present on the thoracic swimmer's vie w. There is mild right foraminal narrowing at C3-4. Left foraminal narrowing is present at C5-6 C6-7 on the left. IMPRESSION: 1. Subluxation on flexion and swimmer's view C2 on C3 of 2 mm and C3 anteriorly on C4 approximately 4 mm. Neutral and extension views appear normal.
== END | disposition home or self-care (01) ==
LOC: RADXRMAIN 14:03
PROVIDERS: ATTEND Internal Medicine
DX: S13.130A Subluxation of C2/C3 cervical vertebrae, initial encounter (principal); M47.812 Spondylosis without myelopathy or radiculopathy, cervical region
CPT/HCPCS: 72052

== ENCOUNTER → 2023-04-18 | Outpatient (CLI) | payer MEDICARE, OTHER ==
--- NOTE | 2023-04-18 10:32 | MR ---
EXAMINATION TYPE: MR venography head wo con DATE OF EXAM: 04/18/2023 COMPARISON: Same day MRA without and with HISTORY: Nonruptured aneurysm Standard multiplanar, multisequence MRI departmental protocol Multiplanar, multisequence images of the brain were acquired without contrast. 2-D and 3-D reconstruc xochitl images are created on an independent workstation and reviewed. FINDINGS: Patent superior sagittal sinus and straight sinus. Majority of inferior sagittal sinuses vi sualized and patent. Portion not seen presumed related to small caliber as no abnormal signal noted o n localizer.Patent internal cerebral vein of [place] bilaterally. Patent bilateral transverse sinus draining into sigmoid sinuses and bilateral internal jugular veins . IMPRESSION: No MRI evidence for deep cerebral venous thrombosis
--- NOTE | 2023-04-18 18:35 | MR ---
EXAMINATION TYPE: MR angio head wo/w con DATE OF EXAM: 04/18/2023 10:03 AM CLINICAL INDICATION:Female, 67 years old with history of I67.1 CEREBRAL ANEURYSM, NONRUPTURED; Nonrup tured aneurysm COMPARISON: MR venogram same day, MR brain 08/17/2021 Technical: 3-D [id number] Axial with MIP reconstruction created on a separate workstation.. IV Contrast: 7 cc Gadavist Findings: Vertebral arteries: The vertebral arteries are patent. The left vertebral artery is dominant. Basilar artery: The basilar artery is intact. The basilar artery terminates with 5 branches with supe rior cerebellar arteries originating at this termination. No evidence or aneurysm. Internal Carotid arteries: The cervical, petrous, cavernous and supraclinoid segments are normal. BAN: Patent with no evidence of aneurysm. ACOM: Present without evidence of aneurysm. MCA: Patent with no evidence of aneurysm. PURCHASING/RECEIVING: Patent with no evidence of aneurysm. PCOM: Hypoplastic bilaterally. IMPRESSION: No evidence of aneurysm or significant stenosis. The basilar artery terminates as 5 branches without evidence for aneurysm.
== END | disposition home or self-care (01) ==
LOC: RADMRIMAIN 09:01
PROVIDERS: ATTEND Internal Medicine
DX: I67.1 Cerebral aneurysm, nonruptured (principal)
CPT/HCPCS: 70544; 70546; A9585

== ENCOUNTER → 2023-04-20 | Outpatient (CLI) | payer MEDICARE, OTHER ==
[2023-04-20 13:03] LABS: African American GFR (CKD) >90 (>60 ml/min/1.73 sqM); Blood Urea Nitrogen 16 mg/dL (7-17); Non-African American GFR(CKD) 88 (>60 ml/min/1.73 sqM)
--- NOTE | 2023-04-20 14:59 | CT ---
EXAMINATION TYPE: CT angio thor/abd pel aorta CT DLP: 1119.2 mGycm, Automated exposure control for dose reduction was used. DATE OF EXAM: 04/20/2023 1:42 PM COMPARISON: 12/16/2020 , 10/30/2016 CLINICAL INDICATION:Female, 67 years old with history of I71.43; Abdominal aortic aneurysm. TECHNIQUE: Dissection protocol: Multiple axial CT images of the chest, abdomen, and pelvis were obtai frieda prior and to the administration of IV contrast. 3-D reformats and maximum intensity projection fo rmat were performed on a separate workstation. Contrast used:100ml mL of Isovue 370 without and with IV Contrast, Oral contrast used: None FINDINGS: ARTERIAL VASCULATURE: No evidence for intramural hematoma on noncontrast imaging of the abdominal or thoracic aorta. Postcontrast imaging demonstrates no evidence for ascending or descending thoracic ao rta aneurysm or dissection. There is aberrant course of the subclavian artery posterior to the esopha mirna. The major vessels of the aortic arch are patent. . The abdominal aorta is within normal limits f or size without evidence of aneurysm. The major branches are patent. No evidence for dissection or an eurysmal dilation. The proximal abdominal aorta is minimally ectatic up to 2.3 cm near its origin int o the as it enters the abdomen. PULMONARY ARTERIAL VASCULATURE: Normal caliber. No evidence of filling defect to suggest pulmonary em bolus. Pulmonary trunk is within normal limits measuring 26 mm. VENOUS SYSTEM: Unremarkable. Lungs/pleura: The lung parenchyma appears unremarkable. Heart: Within normal limits. Mediastinum: No gross evidence of adenopathy. Lower Neck: No significant findings. Abdomen: Liver: Unremarkable. Gallbladder and Bile ducts: Unremarkable. Pancreas: Unremarkable. Spleen: Unremarkable. Adrenal glands: Unremarkable. Kidneys and Ureters: Unremarkable. No hydronephrosis. Bladder: Unremarkable. Reproductive: Unremarkable. Stomach and Bowel: Few scattered colonic diverticula are present. No evidence of bowel obstruction. T he appendix is normal. Peritoneum: No evidence of pneumoperitoneum, free fluid, or adenopathy. Musculoskeletal: The osseous structures appear intact. , Multilevel disc degeneration changes through out the spine. Fixation hardware L3-L5 appears intact. Discectomy at L4-L5 is present. There is degen eration changes throughout the spine. Lymph nodes: No evidence of lymphadenopathy. Abdominal wall/soft tissues: Unremarkable. IMPRESSION: 1. No evidence for abdominal aortic aneurysm, dissection or occlusion. 2. 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 3. No evidence for acute thoracic or abdominal process. 4. Colonic diverticulosis.
== END | disposition home or self-care (01) ==
LOC: RADCTMAIN 11:59
PROVIDERS: ATTEND Internal Medicine
DX: I71.43 Infrarenal abdominal aortic aneurysm, without rupture (principal); K57.30 Diverticulosis of large intestine without perforation or abscess without bleeding
CPT/HCPCS: 82565; 84520; 71275; 36415; 74174; Q9967

== ENCOUNTER → 2023-08-16 | Outpatient (CLI) | payer MEDICARE, OTHER ==
--- NOTE | 2023-08-16 10:04 | MM ---
Reason for Exam: Additional evaluation requested from prior study. Last screening mammogram was performed 12 month(s) ago. Patient History: Menarche at age 11. First Full-Term at age 17. Left ovary removed at age 45. Right ovary removed at age 45. Hysterectomy at age 45. Postmenopausal. Patient has history of breast feeding. Estrogen, from age 45 until age 55. 1990, Benign Excisional Biopsy on the right side. Maternal grandmother had breast cancer, age 60. Maternal cousin had breast cancer. Maternal aunt had breast cancer, age 60. Mother had breast cancer, age 75. Risk Values: Cate 5 year model risk: 3.8%. NCI Lifetime model risk: 10.8%. Prior Study Comparison: 06/28/2016 Screening Mammogram, [facility]. 07/05/2017 Bilateral Screening Mammogram, [facility]. 07/26/2018 Bilateral Screening Mammogram, [facility]. 08/02/2019 Bilateral Screening Mammogram, [facility]. 08/22/2019 Right Diagnostic Mammogram, [facility]. 08/04/2020 Bilateral Diagnostic Mammogram, [facility]. 08/06/2021 Bilateral Screening Mammogram, [facility]. 08/15/2022 Bilateral MG 3D screening mammo w/cad, [facility]. Tissue Density: The breast tissue is heterogeneously dense. This may lower the sensitivity of mammography. Findings: Analyzed By CAD. Pattern appears stable On the medial lateral oblique views there appears to be some distortion within the upper breasts bilaterally. This appears to be a change. Under compression these largely disperse. Some underlying distortion may remain on the right. Mediolateral views however appear unremarkable. Overall Assessment: Probably benign, BI-RAD 3 Management: Diagnostic Mammogram of both breasts in 6 months. A negative mammogram report should not preclude additional follow up of suspicious palpable abnormalities. Patient should continue monthly self breast exam. A clinical breast exam by your physician is recommended on an annual basis and results should be correlated with mammographic findings. Electronically signed and approved by: Eriberto Hilario D.O. Radiologis
[2023-08-16 10:52] LABS: Amorphous Sediment,Urine Rare /hpf; Appearance,Urine Cloudy (Clear); Bilirubin,Urine Negative (Negative); Blood,Urine Moderate (Negative); Calcium Oxalate Crystals,Urine Rare /hpf; Color,Urine Yellow; Glucose,Urine (UA) Negative (Negative); Ketones,Urine 1+ (Negative); Leukocyte Esterase,Urine Small (Negative); Mucus,Urine Many /hpf; Nitrite,Urine Negative (Negative); PH, Urine 5.5 (5.0-8.0); Protein,Urine Trace (Negative); RBC,Urine 56 /hpf (0-5); Specific Gravity,Urine 1.027 (1.001-1.035); Squamous Epithelial Cell,Urine 7 /hpf (0-4); Urobilinogen,Urine <2.0 mg/dL (<2.0); WBC,Urine 5 /hpf (0-5)
[2023-08-16 16:25] LABS: Basophils # (A) 0.04 X 10*3/uL (0.00-0.10); Basophils % (A) 0.8 %; Eosinophils # (A) 0.06 X 10*3/uL (0.04-0.35); Eosinophils % (A) 1.2 %; HCT 44.5 % (37.2-46.3); Lymphocytes % (A) 40.4 %; MCH 28.2 pg (27.0-32.0); MCHC 31.5 d/dL (32.0-37.0); MCV 89.7 FL (80.0-97.0); Mean Platelet Volume 10.5 FL (9.5-12.2); Monocytes # (A) 0.39 X 10*3/uL (0.20-1.00); Monocytes % (A) 7.9 %; NRBC Per 100 WBC 0 X 10*3/uL (0.00-0.01); Neutrophils # (A) 2.43 X 10*3/uL (1.80-7.70); Neutrophils % (A) 49.1 %; Platelet Count 211 X 10*3/uL (140-440); RBC 4.96 X 10*6/uL (4.10-5.20); RDW 13.8 % (11.5-14.5); WBC 4.95 X 10*3/uL (4.50-10.00)
[2023-08-16 19:45] LABS: ALT 59 U/L (8-44); AST 40 U/L (13-35); Albumin 4.6 d/dL (3.8-4.9); Albumin/Globulin Ratio 2.09 Ratio (1.60-3.17); Alkaline Phosphatase 53 U/L (41-126); Blood Urea Nitrogen 20.7 mg/dL (9.0-27.0); Calcium 9.9 mg/dL (8.7-10.3); Carbon Dioxide 16.8 mmol/L (21.6-31.8); Chloride 106 mmol/L (96-109); Chol/HDL Ratio 2.01 Ratio; Globulin 2.2 d/dL (1.6-3.3); Glucose 82 mg/dL (70-110); LDL Cholesterol,Calculated 38.4 mg/dL (0.0-131.0); Potassium 4.3 mmol/L (3.5-5.5); Sodium 138 mmol/L (135-145); T4, Free (Free Thyroxine) 1.31 ng/dL (0.80-1.80); Total Bilirubin 0.4 mg/dL (0.3-1.2); Total Protein 6.8 d/dL (6.2-8.2); VLDL Calculation 16.48 mg/dL (5.00-40.00)
--- NOTE | 2023-08-17 13:39 | P.PN ---
Subjective Progress Note Date: 08/17/23 Principal diagnosis: Fibrocystic breast changes fibrocystic breast changes Deandra is a 68-year-old white female who presents for breast evaluation. She had a bilateral screening mammogram done on 08-16-23. This revealed some distortion within the upper breast bilaterally. Under compression these largely dispersed. This was felt to be BIRADS 3 and diagnostic mammogram of both breast in 6 months was recommended. The patient does not feel any lumps masses or nodules in her breast. The patient is not complaining of any nipple discharge or skin changes. She is not complaining of any pain in her breast. The patient had a right breast biopsy at the age of 36 which was benign Patient had COVID mid September 2020 with joint pain, was not hospitalized, did not lose taste or smell; She did not have the vaccine Cate risk evaluation: 5 year breast cancer risk 3.8% lifetime risk: 11.3% We have discussed chemoprevention and she has declined. Family history: 1. mother: breast cancer, endometrial cancer 2. maternal grandmother: breast cancer 3. maternal aunt: breast cancer 4. paternal cousin: breast cancer pre-menopausal Hormonal History: menarche: 11 , breast fed: yes, age at first 17 menopause: BENJY at 45 ( for endometriosis) BCP: none hormones: 10 years Surgical history: 1. Total abdominal hysterectomy 2. Right breast lumpectomy for benign disease at the age of 36 3. tonsil and adenoids 4. umbilical hernia 5. pilonidal cyst 6. tubal-ligation 7. septum surgery 8 cataracts 9. liver biopsy 10. gallbladder 11. 3 low back surgeries Medical History: 1.REYNOLDS-nonalcoholic fatty liver disease 2. cardiac anomaly 3. Back pain/severe spinal stenosis at L4-5 and stenosis at L3-4 4. Viral encephalopathy at 22 a recent MRI done ; chronic appearing p eriventricular and deep white matter changes Social History: smoke: none alcohol: none drugs: none - Constitutional Constitutional: Denies chills, Denies fever - EENT Eyes: denies blurred vision, denies pain Ears: bilateral: decreased hearing, deny: tinnitus Ears, nose, mouth and throat: Denies headache, Denies sore throat - Breasts Breasts: bilateral: as per HPI - Cardiovascular Comment: congenital cardiac anomaly - Respiratory Respiratory: Denies cough - Gastrointestinal Gastrointestinal: Denies abdominal pain, Denies diarrhea, Denies nausea, Denies vomiting - Genitourinary (Female) Genitourinary: Denies dysuria, Denies hematuria - Menstruation Menstruation: Reports post hysterectomy - Musculoskeletal Comment: arthritis Musculoskeletal: Reports myalgias - Integumentary Comment: none - Neurological Neurological: Denies numbness, Denies weakness - Psychiatric Psychiatric: Denies anxiety, Denies depression - Endocrine Endocrine: Denies fatigue, Denies weight change - Hematologic/Lymphatic Comment: none - Allergic/Immunologic Allergic/Immunologic: Reports seasonal allergies Objective - Constitutional General appearance: Present: cooperative - EENT Eyes: Present: EOMI ENT: Present: hearing grossly normal - Neck Neck: Present: normal ROM - Respiratory Respiratory: bilateral: CTA - Cardiovascular Rhythm: regular Heart sounds: normal: S1, S2 - Gastrointestinal General gastrointestinal: Present: soft - Integumentary Integumentary: Present: normal turgor - Musculoskeletal Musculoskeletal: Present: gait normal - Psychiatric Psychiatric: Present: A&O x's 3, appropriate affect, intact judgment & insight - Additional findings Additional findings: Breast Exam: [id number] Inspection: bilateral grade 3 ptosis, right breast larger than left breast palpation: Right breast: multipositional exam no dominate masses or nodules of concern right axilla: no adenopathy of concern left breast: multipositional exam no dominate masses or nodules of concern left axilla: no adenopathy of concern - Labs CBC & Chem 7: 08/16/23 10:15 08/16/23 10:15 Labs: Abnormal Lab Results - Last 24 Hours (Table) 08/16/23 08/16/23 Range/Units 10:15 10:15 MCHC 31.5 L (32.0-37.0) d/dL Carbon Dioxide 16.8 L (21.6-31.8) mmol/L Anion Gap 15.20 H (4.00-12.00) mmol/L BUN/Creatinine Ratio 23.00 H (12.00-20.00) Ratio AST 40 H (13-35) U/L ALT 59 H (8-44) U/L Assessment and Plan Assessment: Impression: Fibrocystic breast changes BIRADS 3 bilateral breast increased fullness upper-outer quadrant bilaterally Plan: Bilateral mammogram in 6 months with physician exam at that time CC: Dr. Calhoun
== END | disposition home or self-care (01) ==
LOC: RADMAMWWP 08:54
PROVIDERS: ATTEND Surgery
DX: Z00.00 Encounter for general adult medical examination without abnormal findings (principal); R92.8 Other abnormal and inconclusive findings on diagnostic imaging of breast; E78.2 Mixed hyperlipidemia; E55.9 Vitamin D deficiency, unspecified; R73.01 Impaired fasting glucose; N39.0 Urinary tract infection, site not specified; Z78.0 Asymptomatic menopausal state; Z80.3 Family history of malignant neoplasm of breast
CPT/HCPCS: 84439; 80061; 80053; 84443; 85025; 81001; 82306; 83036; 77066; G0279; 77062

== ENCOUNTER → 2023-08-17 | Outpatient (CLI) | payer MEDICARE, OTHER ==
[2023-08-17 13:34] VITALS: BP 123/73; PULSE 57; RESP 17; TEMP 98.1
== END ==
LOC: WWCWWP 12:31
PROVIDERS: ATTEND Surgery
DX: Z53.9 Procedure and treatment not carried out, unspecified reason (principal)

== ENCOUNTER → 2023-08-18 | Outpatient (CLI) | payer MEDICARE, OTHER ==
--- NOTE | 2023-08-18 14:49 | US ---
EXAMINATION TYPE: US kidneys/renal and bladder DATE OF EXAM: 08/18/2023 COMPARISON: NONE CLINICAL INDICATION: Female, 68 years old with history of R31.9 HEMATURIA, UNSPECIFIED; microscopic h ematuria EXAM MEASUREMENTS: Right Kidney: 10.1 x 4.3 x 4.3 cm Left Kidney: 9.9 x 4.4 x 5.4 cm Right Kidney: 0.6 x 0.4cm mid pole shadowing stone, renal pelvis fullness Left Kidney: No hydronephrosis or masses seen Bladder: wnl Bilateral Jets seen: Yes IMPRESSION: There is a 6 mm nonobstructing right renal calculus.
== END | disposition home or self-care (01) ==
LOC: RADUSWWP 13:50
PROVIDERS: ATTEND Internal Medicine
DX: N20.0 Calculus of kidney (principal); R31.9 Hematuria, unspecified
CPT/HCPCS: 76770

== ENCOUNTER → 2023-08-29 | Outpatient (CLI) | payer MEDICARE, OTHER ==
--- NOTE | 2023-08-31 08:50 | MR ---
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 TECHNIQUE: Multi planar, multi sequence imaging was performed utilizing: T1-weighted, T2-weighted, an d turbo inversion recovery imaging of the cervical spine. IV Contrast: cc (none if empty) FINDINGS: Alignment: The cervical vertebral bodies have preserved heights. Grade 1 anterolisthesis of C7 on T1 and T1 and T2 without significant spinal canal stenosis. Bones: Scattered Modic endplate changes with osteophytes and disc space narrowing. Multilevel degener ative disc disease is noted and most pronounced at the C5-C7 vertebral levels. Cord: The spinal cord is unremarkable with regards to their signal intensity and morphology. Discs: Multilevel disc desiccation is present. C2-C3: A disc osteophyte complex is present which minimally narrows the ventral subarachnoid space. Bilateral facet and uncovertebral joint arthropathy are present with mild bilateral neural foraminal stenosis. C3-C4: No significant disc pathology. The spinal canal is patent. Bilateral facet and uncovertebral joint arthropathy are present with mild to moderate right and mild left neural foraminal stenosis. C4-C5: No significant disc pathology. The spinal canal is patent. Bilateral facet and uncovertebral joint arthropathy are present with mild bilateral neural foraminal stenosis. C5-C6: A disc osteophyte complex is present which minimally narrows the ventral subarachnoid space. Bilateral facet and uncovertebral joint arthropathy are present with moderate to severe left and mod erate right neural foraminal stenosis. C6-C7: A disc osteophyte complex is present which minimally narrows the ventral subarachnoid space. Bilateral facet and uncovertebral joint arthropathy are present with moderate bilateral neural nataliia inal stenosis. C7-T1: No significant disc pathology. The spinal canal is patent. No neural foraminal stenosis. IMPRESSION: 1. No evidence for disc herniation or significant spinal canal stenosis. 2. Multilevel disc degeneration with associated osteoarthritic changes worse at C5-C7 3. Grade 1 anterolisthesis of C7 on T1 and T1 and T2 without significant spinal canal stenosis.
== END | disposition home or self-care (01) ==
LOC: RADMRIMAIN 14:09
PROVIDERS: ATTEND Internal Medicine
DX: M47.812 Spondylosis without myelopathy or radiculopathy, cervical region (principal); M50.322 Other cervical disc degeneration at C5-C6 level; M43.12 Spondylolisthesis, cervical region
CPT/HCPCS: 72141

== ENCOUNTER → 2024-02-05 | Outpatient (CLI) | payer MEDICARE, OTHER ==
--- NOTE | 2024-02-05 13:33 | MM ---
Reason for Exam: Follow-up at short interval from prior study. Last screening mammogram was performed 6 month(s) ago. Patient History: Menarche at age 11. First Full-Term at age 17. Left ovary removed at age 45. Right ovary removed at age 45. Hysterectomy at age 45. Postmenopausal. Patient has history of breast feeding. Estrogen, from age 45 until age 55. 1990, Benign Excisional Biopsy on the right side. Maternal grandmother had breast cancer, age 60. Maternal cousin had breast cancer. Maternal aunt had breast cancer, age 60. Mother had breast cancer, age 75. Risk Values: Cate 5 year model risk: 3.8%. NCI Lifetime model risk: 10.8%. Prior Study Comparison: 08/02/2019 Bilateral Screening Mammogram, [facility]. 08/22/2019 Right Diagnostic Mammogram, [facility]. 08/04/2020 Bilateral Diagnostic Mammogram, [facility]. 08/06/2021 Bilateral Screening Mammogram, [facility]. 08/15/2022 Bilateral MG 3D screening mammo w/cad, [facility]. 08/16/2023 Bilateral MG 3D diag mammo w/cad [facility], [facility]. Tissue Density: There are scattered areas of fibroglandular density. Findings: Analyzed By CAD. 12:00 focal asymmetry anterior depth does not persist on additional views. No significant change from prior exams. Overall Assessment: Incomplete: need additional imaging evaluation, BI-RAD 0 Management: Diagnostic Breast Ultrasound of both breasts. Axilla at the site of patient's complaint. Electronically signed and approved by: Grant Saldana M.D. Radiologist
--- NOTE | 2024-02-05 14:56 | USB ---
Reason for Exam: Clinical finding. Patient History: Menarche at age 11. First Full-Term at age 17. Left ovary removed at age 45. Right ovary removed at age 45. Hysterectomy at age 45. Postmenopausal. Patient has history of breast feeding. Estrogen, from age 45 until age 55. 1990, Benign Excisional Biopsy on the right side. Maternal grandmother had breast cancer, age 60. Maternal cousin had breast cancer. Maternal aunt had breast cancer, age 60. Mother had breast cancer, age 75. Risk Values: Cate 5 year model risk: 3.8%. NCI Lifetime model risk: 10.8%. Technique: Method: Targeted. Prior Study Comparison: 08/06/2021 Bilateral Screening Mammogram, [facility]. 08/15/2022 Bilateral MG 3D screening mammo w/cad, [facility]. 08/16/2023 Bilateral MG 3D diag mammo w/cad [facility], [facility]. Findings: The axilla of the right breast was scanned. Targeted right axillary ultrasound at the patient's palpable site. A small nonenlarged and benign-appearing lymph node measures 1.1 x 0.7 cm. No suspicious solid or cystic lesion. Overall Assessment: Benign, BI-RAD 2 Management: Screening Mammogram of both breasts in 1 year. A clinical breast exam by your physician is recommended on an annual basis and results should be correlated with mammographic findings. This exam should not preclude additional follow-up of suspicious palpable abnormalities. Results were given to the patient verbally at the time of exam. Electronically signed and approved by: Grant Saldana M.D. Radiologist
--- NOTE | 2024-02-05 14:56 | USB ---
Reason for Exam: Clinical finding. Patient History: Menarche at age 11. First Full-Term at age 17. Left ovary removed at age 45. Right ovary removed at age 45. Hysterectomy at age 45. Postmenopausal. Patient has history of breast feeding. Estrogen, from age 45 until age 55. 1990, Benign Excisional Biopsy on the right side. Maternal grandmother had breast cancer, age 60. Maternal cousin had breast cancer. Maternal aunt had breast cancer, age 60. Mother had breast cancer, age 75. Risk Values: Cate 5 year model risk: 3.8%. NCI Lifetime model risk: 10.8%. Technique: Method: Targeted. Prior Study Comparison: 08/06/2021 Bilateral Screening Mammogram, [facility]. 08/15/2022 Bilateral MG 3D screening mammo w/cad, [facility]. 08/16/2023 Bilateral MG 3D diag mammo w/cad [facility], [facility]. Findings: The axilla of the left breast was scanned. Targeted ultrasound shows a borderline enlarged but otherwise benign-appearing lymph node measuring 2.1 x 1.6 x 0.8 cm. Fatty hilum and thin uniform cortex. Overall Assessment: Benign, BI-RAD 2 Management: Screening Mammogram of both breasts in 1 year. If any enlarging palpable area, the patient can be rescanned. A clinical breast exam by your physician is recommended on an annual basis and results should be correlated with mammographic findings. This exam should not preclude additional follow-up of suspicious palpable abnormalities. Results were given to the patient verbally at the time of exam. Electronically signed and approved by: Grant Saldana M.D. Radiologist
== END | disposition home or self-care (01) ==
LOC: RADMAMWWP 12:35
PROVIDERS: ATTEND Internal Medicine
DX: R92.323 Mammographic fibroglandular density, bilateral breasts (principal); R59.0 Localized enlarged lymph nodes; Z80.3 Family history of malignant neoplasm of breast; Z78.0 Asymptomatic menopausal state
CPT/HCPCS: 77066; 76642 ×2; G0279; 77062

== ENCOUNTER → 2024-02-16 | Outpatient (CLI) | payer MEDICARE, OTHER ==
[2024-02-16 10:44] VITALS: BP 125/80; PULSE 60; RESP 17; TEMP 98.3
--- NOTE | 2024-02-16 11:39 | P.PN ---
Subjective Progress Note Date: 02/16/24 Principal diagnosis: fibrocystic breast changes 08/17/23 Principal diagnosis: Fibrocystic breast changes fibrocystic breast changes Deandra is a 68-year-old white female who presents for breast evaluation. She had a bilateral screening mammogram done on 08-16-23. This revealed some distortion within the upper breast bilaterally. Under compression these largely dispersed. This was felt to be BIRADS 3 and diagnostic mammogram of both breast in 6 months was recommended. The patient does not feel any lumps masses or nodules in her breast. The patient is not complaining of any nipple discharge or skin changes. She is not complaining of any pain in her breast. The patient had a right breast biopsy at the age of 36 which was benign Patient had COVID mid September 2020 with joint pain, was not hospitalized, did not lose taste or smell; She did not have the vaccine 02-05-24 bilateral mammogram and ultrasound of bilateral axilla 02-05-24 BIRAD [address] Young; she is complaining of bilateral breast pain for about 3 weeks, The pain is lateral and feel full. She is not compalining of any specific lumps or masses. Cate risk evaluation: 5 year breast cancer risk 3.8% lifetime risk: 10.8% We have discussed chemoprevention and she has declined in the past, but now would like to have a discussion regarding this. Family history: 1. mother: breast cancer, endometrial cancer 2. maternal grandmother: breast cancer 3. maternal aunt: breast cancer 4. paternal cousin: breast cancer pre-menopausal Hormonal History: menarche: 11 , breast fed: yes, age at first 17 menopause: BENJY at 45 ( for endometriosis) BCP: none hormones: 10 years Surgical history: 1. Total abdominal hysterectomy 2. Right breast lumpectomy for benign disease at the age of 36 3. tonsil and adenoids 4. umbilical hernia 5. pilonidal cyst 6. tubal-ligation 7. septum surgery 8 cataracts 9. liver biopsy 10. gallbladder 11. 3 low back surgeries Medical History: 1.REYNOLDS-nonalcoholic fatty liver disease 2. cardiac anomaly 3. Back pain/severe spinal stenosis at L4-5 and stenosis at L3-4 4. Viral encephalopathy at 22 a recent MRI done ; chronic appearing periventricular and deep white matter changes Social History: smoke: none alcohol: none drugs: none - Constitutional Constitutional: Denies chills, Denies fever - EENT Eyes: denies blurred vision, denies pain Ears: bilateral: decreased hearing, deny: tinnitus Ears, nose, mouth and throat: Denies headache, Denies sore throat - Breasts Breasts: bilateral: as per HPI - Cardiovascular Comment: congenital cardiac anomaly - Respiratory Respiratory: Denies cough - Gastrointestinal Gastrointestinal: Denies abdominal pain, Denies diarrhea, Denies nausea, Denies vomiting - Genitourinary (Female) Genitourinary: Denies dysuria, Denies hematuria - Menstruation Menstruation: Reports post hysterectomy - Musculoskeletal Comment: arthritis Musculoskeletal: Reports myalgias - Integumentary Comment: none - Neurological Neurological: Denies numbness, Denies weakness - Psychiatric Psychiatric: Denies anxiety, Denies depression - Endocrine Endocrine: Denies fatigue, Denies weight change - Hematologic/Lymphatic Comment: none - Allergic/Immunologic Allergic/Immunologic: Reports seasonal allergies Objective - Vital Signs Vital signs: Vital Signs Temp 98.3 F 02/16/24 10:40 Pulse 60 02/16/24 10:40 Resp 17 02/16/24 10:40 BP 125/80 02/16/24 10:40 Pulse Ox 99 02/16/24 10:40 FiO2 Intake & Output 02/15/24 02/16/24 02/16/24 18:59 06:59 18:59 Weight 70.307 kg - Constitutional General appearance: Present: cooperative - EENT Eyes: Present: EOMI ENT: Present: hearing grossly normal - Neck Neck: Present: normal ROM - Respiratory Respiratory: bilateral: CTA - Cardiovascular Heart sounds: normal: S1, S2 - Integumentary Integumentary: Present: normal turgor - Musculoskeletal Musculoskeletal: Present: gait normal - Psychiatric Psychiatric: Present: A&O x's 3, appropriate affect, intact judgment & insight - Additional findings Additional findings: Breast Exam: [id number] Inspection: bilateral grade 3 ptosis, right breast larger than left breast palpation: Right breast: multipositional exam no dominate masses or nodules of concern right axilla: no adenopathy of concern left breast: multipositional exam no dominate masses or nodules of concern left axilla: no adenopathy of concern Assessment and Plan Assessment: Impression: Fibrocystic breast changes BIRADS 2 3-11-24 Plan: Bilateral mammogram in [address] Gonzalez regarding chemoprophylaxis, patient is at high risk with her 5-year risk being 3.8% Hormone prophylaxis may also help with the breast discomfort CC: Dr. Calhoun
== END | disposition home or self-care (01) ==
LOC: WWCWWP 10:26
PROVIDERS: ATTEND Surgery
DX: N60.11 Diffuse cystic mastopathy of right breast (principal); N60.12 Diffuse cystic mastopathy of left breast; Z88.0 Allergy status to penicillin

== ENCOUNTER → 2024-03-06 | Outpatient (CLI) | payer MEDICARE, OTHER ==
--- NOTE | 2024-03-07 12:21 | US ---
EXAMINATION TYPE: US thyroid st tissue head/neck DATE OF EXAM: 03/06/2024 COMPARISON: CLINICAL INDICATION: Female, 68 years old with history of E04.1 NONTOXIC SINGLE THYROID NODULE; Follo w up thyroid nodules. GLAND SIZE: Right Lobe: 4.5 x 1.7 x 1.8 cm Overall Parenchyma: homogeneous Left Lobe: 4.8 x 2.1 x 2.2 cm Overall Parenchyma: homogeneous Isthmus Thickness: 0.3 cm NODULES RIGHT: # of nodules measured on right: 2 1. 0.5 X 0.5 x 0.4 cm, upper mid, solid or almost completely solid, hypoechoic nodule, which is wid er than tall, with smooth margins, without echogenic foci. Prior size: 0.4 x 0.4 x 0.4 cm 2. 0.7 X 0.6 x 0.5 cm, lower mid, solid or almost completely solid, hypoechoic nodule, which is wid er than tall, with smooth margins, without echogenic foci. Prior size: 0.5 x 0.3 x 0.3 cm LEFT: # of nodules measured on left: 2 1. 2.0 X 1.5 x 1.5 cm, upper mid, mixed cystic and solid, hypoechoic nodule, which is wider than ta ll, with smooth margins, without echogenic foci. TR 3. Prior size: 2.2 x 1.5 x 1.4 cm 2. 0.7 X 0.7 x 0.5 cm, lower mid, mixed cystic and solid, hypoechoic nodule, which is wider than t all, with smooth margins, without echogenic foci. Prior size: 0.7 x 0.6 x 0.6 cm ISTHMUS: # of nodules measured in the isthmus: 0 Bilateral neck scanned, lymph nodes seen. Largest right neck: with short axis = 0.7 cm and cortical thickness= 3.7 mm. Largest left neck: with short axis = 0.8 cm and cortical thickness= 5.3 mm. IMPRESSION: 1. Multinodular thyroid with the stable dominant nodule in the left thyroid measuring 2.0 cm and prev iously measuring 2.2 cm. See below for ACR guidelines. 2. Additional subcentimeter bilateral thyroid nodules. 2017 ACR TI-RADS LEVEL: TR-RADS 3 - Mildly Suspicious: Follow if > 1.5 cm, FNA if > 2.5 cm *Highest TI-RADS level nodule reported
== END | disposition home or self-care (01) ==
LOC: RADUSWWP 12:25
PROVIDERS: ATTEND Internal Medicine
DX: E04.2 Nontoxic multinodular goiter (principal)
CPT/HCPCS: 76536

== ENCOUNTER → 2024-03-11 | Outpatient (CLI) | payer MEDICARE, OTHER ==
--- NOTE | 2024-03-14 07:20 | BD ---
EXAMINATION TYPE: Axial Bone Density DATE OF EXAM: 03/11/2024 CLINICAL HISTORY: 68 years old Female. ICD-10 CODE: M81.0 AGE-RELATED OSTEOPOROSIS W/O CURRENT PATHO LO Height: 63.2 Weight: 161 FRAX RISK QUESTIONS: Family History (Parent hip fracture): no 3. Menopause before 45: no at about 44, total hyst 5. Chronic liver disease: yes, fatty liver and prior biopsies on her liver RISK FACTORS HISTORY OF: Surgery to Spine in 2021, lumbar spine, MEDICATIONS: Thyroid Medications: in the past only, nothing now Osteoporosis Medications: tried fosamax, and prolia, now doing Reclast infusions. How Long: for about 2 yrs EXAM MEASUREMENTS: Bone mineral densitometry was performed using the PartSimple System. lumbar surgery with hardware repair....spine not scanned. Bone mineral density about the R hip (g/cm2): 0.799 Bone mineral density about the L hip (g/cm2): 0.720 T Score values are as follows: -----R Neck: -2.4 -----L Neck: -2.9 -----R Total: -1.7 -----L Total: -2.3 Z Score values are as follows: -----R Neck: -0.9 -----L Neck: -1.3 -----R Total: -0.3 -----L Total: -1.0 Bone mineral density has: Increased 9.2% since study of: 03.09.2022 Bone mineral density about the L Wrist (g/cm2): 0.360 T Score values are as follows: -----Dist. R+U: -4.7 -----Prox. R+U: -4.0 -----Radius total: -5.0 Z Score values are as follows: -----Dist. R+U: -2.8 -----Prox. R+U: -2.1 -----Radius total: -3.2 Bone mineral density has: Decreased -8.6% since study of: 03.09.2022 FRAX%s: The graph provided illustrates a 17.7% chance for a major osteoporotic fx and a 5.6% chance f or the hips probability for fx in 10 years time. IMPRESSION: Osteoporosis (T Score less than -2.5). There is increased fracture risk and therapy is usually indicated based on age. Re-Screen 1-2 years. NOTE: T-SCORE=SD OF THE YOUNG ADULT MEAN.
== END | disposition home or self-care (01) ==
LOC: RADBDWWP 10:21
PROVIDERS: ATTEND Internal Medicine
DX: M81.0 Age-related osteoporosis without current pathological fracture (principal); M85.851 Other specified disorders of bone density and structure, right thigh; Z78.0 Asymptomatic menopausal state
CPT/HCPCS: 77080

== ENCOUNTER → 2024-04-11 | Outpatient (CLI) | payer MEDICARE, OTHER ==
[2024-04-11] MEDS: SODIUM CHLORIDE 0.9% 500 ML 500 ML in EMPTY BAG 1 BAG IV PRN (13:52)
[2024-04-11] MEDS: ZOLEDRONIC ACID 5 MG in SODIUM CHLORIDE 0.9% 100 ML IV NR (13:53)
[2024-04-11 14:10] VITALS: BP 137/84; PULSE 58; RESP 16; TEMP 98.1
== END ==
LOC: PROCWHC3 13:30
PROVIDERS: ATTEND Internal Medicine
DX: M81.0 Age-related osteoporosis without current pathological fracture (principal)
CPT/HCPCS: 96365; J3489

== ENCOUNTER → 2024-04-15 | Outpatient (CLI) | payer MEDICARE, OTHER ==
--- NOTE | 2024-04-17 08:19 | BMR ---
EXAM DATE: 04/15/2024 EXAM DESCRIPTION: MRI-Breast Bilat (W/WO Contrast) INDICATION: High risk surveillance. Family history of breast cancer. COMPARISON: Comparison was made to prior relevant imaging available in PACS TECHNIQUE: Multiplanar multisequence breast MRI was performed prior to and after administration of 7.5 mL of Gadavist intravenously. Post processing was performed utilizing a [employer] workstation. The exam was performed at [facility] and submitted to review by [facility] Radiologist. FINDINGS: There is minimal, symmetric background parenchymal enhancement in breasts that are composed of scattered fibroglandular tissue.. RIGHT BREAST: Review of the dynamic contrast enhanced series shows no rapidly enhancing masses, suspicious enhancement patterns or other abnormalities. The T2 weighted series show no abnormality. LEFT BREAST: Review of the dynamic contrast enhanced series shows no rapidly enhancing masses, suspicious enhancement pattern or other abnormalities. The T2 weighted series show no abnormality. IMPRESSION: Right breast: BI-RADS Category 1-negative. No MRI evidence of malignancy. Recommendation: MRI screening in 1 year Left breast: BI-RADS Category 1-negative. No MR evidence of malignancy. Recommendation: MRI screening in 1 year. OVERALL ASSESSMENT- BI-RADS 1 MTDD
== END | disposition home or self-care (01) ==
LOC: RADMRIMAIN 08:25
PROVIDERS: ATTEND Internal Medicine
DX: R59.0 Localized enlarged lymph nodes (principal); Z80.3 Family history of malignant neoplasm of breast
CPT/HCPCS: C8908; A9585; 77049

== ENCOUNTER 2024-04-29 12:45 | Day surgery (SDC) | payer MEDICARE ==
[2024-04-29 13:32] VITALS: TEMP 98.3
--- NOTE | 2024-04-29 14:20 | US ---
EXAMINATION TYPE: US FNA thyroid first lesion DATE OF EXAM: 04/29/2024 2:15 PM CLINICAL INDICATION:Female, 68 years old with history of E04.1 thyroid nodule; , thyroid nodule. COMPARISON: 03/06/2024 ATTENDING: Dr. Josh Young PROCEDURE: Informed consent was obtained. The risks and benefits of the procedure were discussed with the patien t. The site was marked. Timeout procedure was performed Ultrasound imaging of the thyroid demonstrates left thyroid nodule The patient was prepped, draped in the usual sterile fashion, and locally anesthetized with 1% lidoca ine. Five fine needle aspiration were then performed with a 25 gauge needle. Samples were sent to [facility] pathology department for further analysis. Patient tolerated the procedure without incident and wa s sent home in stable condition. IMPRESSION: Successful ultrasound guided fine needle aspiration.
[2024-04-29 14:40] VITALS: BP 120/73; PULSE 66; RESP 16
== END 2024-04-29 13:35 | disposition home or self-care (01) ==
LOC: RADPROMAIN 12:45
PROVIDERS: ATTEND Internal Medicine
DX: E04.1 Nontoxic single thyroid nodule (principal)
CPT/HCPCS: 10005; 88173; 88305

== ENCOUNTER → 2024-05-27 | Outpatient (CLI) | payer MEDICARE ==
[2024-05-27 10:22] LABS: Basophils # (A) 0.1 k/uL (0-0.2); Basophils % (A) 1 %; Eosinophils # (A) 0.1 k/uL (0-0.7); Eosinophils % (A) 1 %; HCT 45.7 % (34.0-46.0); HGB 14.1 gm/dL (11.4-16.0); Lymphocytes # (A) 1.8 k/uL (1.0-4.8); Lymphocytes % (A) 33 %; MCH 28.3 pg (25.0-35.0); MCHC 30.9 g/dL (31.0-37.0); MCV 91.8 fL (80.0-100.0); Mean Platelet Volume 7.3; Monocytes # (A) 0.3 k/uL (0-1.0); Monocytes % (A) 6 %; Neutrophils # (A) 3.1 k/uL (1.3-7.7); Neutrophils % (A) 57 %; Platelet Count 221 k/uL (150-450); RBC 4.98 m/uL (3.80-5.40); RDW 13.7 % (11.5-15.5); WBC 5.3 k/uL (3.8-10.6)
[2024-05-27 15:49] LABS: ALT 44 U/L (8-44); AST 30 U/L (13-35); Albumin 4.5 g/dL (3.8-4.9); Albumin/Globulin Ratio 1.55 Ratio (1.60-3.17); Alkaline Phosphatase 58 U/L (41-126); BUN/Creat Ratio 22.22 Ratio (12.00-20.00); Calcium 10.7 mg/dL (8.7-10.3); Carbon Dioxide 25.6 mmol/L (21.6-31.8); Chloride 102 mmol/L (96-109); Chol/HDL Ratio 2.62 Ratio; Globulin 2.9 g/dL (1.6-3.3); Glucose 102 mg/dL (70-110); LDL Cholesterol,Calculated 79.8 mg/dL (0.0-131.0); Magnesium 2.1 mg/dL (1.5-2.4); Sodium 139 mmol/L (135-145); Total Bilirubin 0.3 mg/dL (0.3-1.2); Total Protein 7.4 g/dL (6.2-8.2)
== END | disposition home or self-care (01) ==
LOC: LABWHC1 09:56
PROVIDERS: ATTEND Internal Medicine
DX: Z00.00 Encounter for general adult medical examination without abnormal findings (principal); E78.2 Mixed hyperlipidemia; R31.9 Hematuria, unspecified; R73.09 Other abnormal glucose
CPT/HCPCS: 36415; 80053; 80061; 83036; 83735; 84443; 85025

== ENCOUNTER → 2024-06-14 | Outpatient (CLI) | payer MEDICARE, OTHER ==
--- NOTE | 2024-06-14 15:00 | CT ---
EXAMINATION TYPE: CT abdomen pelvis wo con DATE OF EXAM: 06/14/2024 COMPARISON: 12/24/2020 HISTORY: Rt side flank pain. CT DLP: 934 mGycm Examination of the solid and hollow viscera is limited given the lack of contrast. FINDINGS: LUNG BASES: No evidence for nodule. No evidence for infiltrate. LIVER/GB: The gallbladder is unremarkable. No space-occupying hepatic lesion. PANCREAS: No pancreatic mass identified. No inflammatory process seen. SPLEEN: No evidence for splenomegaly. No intrasplenic lesions seen. ADRENALS: No adrenal nodules identified. No evidence for thickening. KIDNEYS: No evidence for renal mass. Nonobstructing 2 mm calculus midpole right kidney. Nonobstructin g 3 mm calculus midpole right kidney. There are a couple of nonobstructing 1 mm calculi midpole left kidney. The No hydronephrosis. BOWEL: Appendix has a normal appearance. No evidence of bowel obstruction. No inflammatory process. Lymph nodes: No evidence for adenopathy greater than 1 cm. Abdominal aorta: Atheromatous changes seen. No evidence for aneurysm. Genital organs: No significant abnormality. Other: Postoperative and degenerative changes lumbar spine. IMPRESSION: NONOBSTRUCTING NEPHROLITHIASIS.
== END | disposition home or self-care (01) ==
LOC: RADCTMAIN 13:49
PROVIDERS: ATTEND Internal Medicine
DX: N20.0 Calculus of kidney (principal)
CPT/HCPCS: 74176

== ENCOUNTER → 2024-08-16 | Outpatient (CLI) | payer MEDICARE, OTHER ==
--- NOTE | 2024-08-16 15:51 | US ---
EXAMINATION TYPE: US kidneys/renal and bladder DATE OF EXAM: 08/16/2024 COMPARISON: CLINICAL INDICATION: Female, 69 years old with history of N28.1 RENAL CYST; CT at [facility] showed stones. MRI at outside facility showed left lower renal cyst. EXAM MEASUREMENTS: Right Kidney: 10.0 x 4.1 x 4.4 cm Left Kidney: 10.4 x 5.0 x 4.2 cm Right Kidney: lower pole echogenic focus = 0.5 cm in be compatible with a nonobstructing renal stone. Left Kidney: mid lower complex hypoechoic area = 1.2 x 1.3 x 0.9 cm. Lateral superior anechoic septa xochitl area = 1.2 x 1.3 x 1.0 cm. Echogenic focus, non shadowing = 0.5 cm Bladder: mildly distended, anechoic Bilateral Jets not seen There is no evidence for hydronephrosis at this point in time. No nephrolithiasis is seen. No brooks s are identified. The urinary bladder is anechoic. Bilateral ureteral jets are seen. IMPRESSION: 1. Nonobstructing renal stone in the mid to inferior pole right kidney. 2. Nonobstructing inferior pole left renal stones present. 3. Renal cysts left kidney. [facility], , 08/16/2024 3:49 PM
== END | disposition home or self-care (01) ==
LOC: RADUSWWP 14:46
PROVIDERS: ATTEND Internal Medicine
CPT/HCPCS: 76770

== ENCOUNTER → 2024-08-29 | Outpatient (CLI) | payer MEDICARE, OTHER ==
--- NOTE | 2024-08-29 18:03 | XR ---
EXAMINATION TYPE: XR Hip Complete RT DATE OF EXAM: 08/29/2024 CLINICAL HISTORY: pain TECHNIQUE: AP and frogleg views of the right hip are obtained. COMPARISON: None. FINDINGS: There is no acute fracture/dislocation evident. The joint space appears within normal li mits. The overlying soft tissue appears unremarkable. IMPRESSION: 1. There is no acute fracture or dislocation. ICD 10 NO FRACTURE, INITIAL EVALUATION [facility], , 08/29/2024 6:00 PM
== END | disposition home or self-care (01) ==
LOC: RADXRMAIN 17:32
PROVIDERS: ATTEND Internal Medicine
DX: M25.551 Pain in right hip (principal)
CPT/HCPCS: 73502

== ENCOUNTER → 2024-10-02 | Outpatient (CLI) | payer MEDICARE, OTHER ==
[2024-10-02 15:06] LABS: Basophils # (A) 0.05 X 10*3/uL (0.00-0.10); Basophils % (A) 0.9 %; Eosinophils # (A) 0.06 X 10*3/uL (0.04-0.35); Eosinophils % (A) 1.1 %; HCT 42.1 % (37.2-46.3); HGB 13.8 g/dL (12.0-15.0); Lymphocytes # (A) 2.15 X 10*3/uL (0.90-5.00); Lymphocytes % (A) 39.1 %; MCH 29.4 pg (27.0-32.0); MCHC 32.8 g/dL (32.0-37.0); MCV 89.6 FL (80.0-97.0); Mean Platelet Volume 9.9 FL (9.5-12.2); Monocytes # (A) 0.35 X 10*3/uL (0.20-1.00); Monocytes % (A) 6.4 %; NRBC Per 100 WBC 0 X 10*3/uL (0.00-0.01); Neutrophils # (A) 2.85 X 10*3/uL (1.80-7.70); Neutrophils % (A) 51.8 %; Platelet Count 242 X 10*3/uL (140-440); RDW 13.4 % (11.5-14.5)
[2024-10-02 15:07] LABS: Appearance,Urine Clear (Clear); Bilirubin,Urine Negative (Negative); Blood,Urine Small (Negative); Color,Urine Yellow (Yellow); Ketones,Urine Negative (Negative); Nitrite,Urine Negative (Negative); Specific Gravity,Urine 1.008 (1.001-1.030); Urobilinogen,Urine 0.2 E.U./DL
[2024-10-02 15:34] LABS: ALT 44 U/L (8-44); AST 29 U/L (13-35); Albumin 4.6 g/dL (3.8-4.9); Albumin/Globulin Ratio 1.77 Ratio (1.60-3.17); Alkaline Phosphatase 64 U/L (41-126); Blood Urea Nitrogen 22.4 mg/dL (9.0-27.0); Calcium 10.4 mg/dL (8.7-10.3); Carbon Dioxide 24.7 mmol/L (21.6-31.8); Chloride 105 mmol/L (96-109); Chol/HDL Ratio 2.33 Ratio; Creatine Kinase 90 U/L (26-186); Globulin 2.6 g/dL (1.6-3.3); Glucose 96 mg/dL (70-110); LDH 160 U/L (120-246); LDL Cholesterol,Calculated 65.5 mg/dL (0.0-131.0); Potassium 4.5 mmol/L (3.5-5.5); Sodium 140 mmol/L (135-145); Total Bilirubin 0.4 mg/dL (0.3-1.2); Total Protein 7.2 g/dL (6.2-8.2); Uric Acid 5.5 mg/dL (2.9-7.7)
[2024-10-02 15:47] LABS: Bacteria,Urine None Seen (None Seen)
== END | disposition home or self-care (01) ==
LOC: LABWHC1 08:13
PROVIDERS: ATTEND Internal Medicine
DX: J30.9 Allergic rhinitis, unspecified (principal); E78.2 Mixed hyperlipidemia; K76.0 Fatty (change of) liver, not elsewhere classified; M19.90 Unspecified osteoarthritis, unspecified site; E04.1 Nontoxic single thyroid nodule; M81.0 Age-related osteoporosis without current pathological fracture; R22.31 Localized swelling, mass and lump, right upper limb
CPT/HCPCS: 36415; 80053; 80061; 81001; 82306; 82550; 83036; 83615; 84443; 84550; 85025

== ENCOUNTER → 2024-10-03 | Outpatient (CLI) | payer MEDICARE, OTHER ==
--- NOTE | 2024-10-03 14:53 | USB ---
Reason for Exam: Clinical finding. Patient History: Menarche at age 11. First Full-Term at age 17. Left ovary removed at age 45. Right ovary removed at age 45. Hysterectomy at age 45. Postmenopausal. Patient has history of breast feeding. Estrogen, from age 45 until age 55. 1990, Benign Excisional Biopsy on the right side. Maternal grandmother had breast cancer, age 60. Maternal cousin had breast cancer. Maternal aunt had breast cancer, age 60. Mother had breast cancer, age 75. Risk Values: Cate 5 year model risk: 3.8%. NCI Lifetime model risk: 10.3%. Technique: Method: Targeted. Prior Study Comparison: 08/15/2022 Bilateral MG 3D screening mammo w/cad, [facility]. 08/16/2023 Bilateral MG 3D diag mammo w/cad [facility], [facility]. 02/05/2024 Bilateral MG 3D diag mammo w/cad [facility], [facility]. Findings: The upper outer quadrant of the right breast and the axilla of the right breast were scanned. Bilateral axillary examined with real-time linear array sonography. Scattered benign nodes are present. No nonspecific cortex are evident. No suspicious masses or cysts evident.. Overall Assessment: Benign, BI-RAD 2 Electronically signed and approved by: Eriberto Hilario D.O. Radiologis
--- NOTE | 2024-10-04 09:08 | USB ---
Reason for Exam: Clinical finding. Patient History: Menarche at age 11. First Full-Term at age 17. Left ovary removed at age 45. Right ovary removed at age 45. Hysterectomy at age 45. Postmenopausal. Patient has history of breast feeding. Estrogen, from age 45 until age 55. 1990, Benign Excisional Biopsy on the right side. Maternal grandmother had breast cancer, age 60. Maternal cousin had breast cancer. Maternal aunt had breast cancer, age 60. Mother had breast cancer, age 75. Risk Values: Cate 5 year model risk: 3.8%. NCI Lifetime model risk: 10.3%. Technique: Method: Targeted. Prior Study Comparison: 08/15/2022 Bilateral MG 3D screening mammo w/cad, [facility]. 08/16/2023 Bilateral MG 3D diag mammo w/cad Y[facility], [facility]. 02/05/2024 Bilateral MG 3D diag mammo w/cad [facility], [facility]. Findings: The upper outer quadrant of the left breast and the axilla of the left breast were scanned. Bilateral axillary examined with real-time linear array sonography. Scattered benign nodes are present. No nonspecific cortex are evident. No suspicious masses or cysts evident.. Overall Assessment: Benign, BI-RAD 2 Management: Clinical Management of both breasts. A clinical breast exam by your physician is recommended on an annual basis and results should be correlated with mammographic findings. This exam should not preclude additional follow-up of suspicious palpable abnormalities. Results were given to the patient verbally at the time of exam. [facility], , 10/03/2024 2:49 PM . Electronically signed and approved by: Eriberto Hilario D.O. Radiologis
== END | disposition home or self-care (01) ==
LOC: RADUSWWP 14:14
PROVIDERS: ATTEND Internal Medicine
DX: C50.911 Malignant neoplasm of unspecified site of right female breast (principal); R22.31 Localized swelling, mass and lump, right upper limb; Z78.0 Asymptomatic menopausal state; Z80.3 Family history of malignant neoplasm of breast; Z90.722 Acquired absence of ovaries, bilateral

== ENCOUNTER → 2025-01-23 | Outpatient (CLI) | payer MEDICARE, OTHER ==
[2025-01-23 15:22] LABS: Basophils # (A) 0.05 X 10*3/uL (0.00-0.10); Basophils % (A) 0.9 %; Eosinophils % (A) 1.8 %; HCT 43.1 % (37.2-46.3); HGB 13.4 g/dL (12.0-15.0); Lymphocytes # (A) 1.92 X 10*3/uL (0.90-5.00); Lymphocytes % (A) 34.8 %; MCHC 31.1 g/dL (32.0-37.0); MCV 90.2 FL (80.0-97.0); Mean Platelet Volume 10.3 FL (9.5-12.2); Monocytes % (A) 7.3 %; NRBC Per 100 WBC 0 X 10*3/uL (0.00-0.01); Neutrophils # (A) 3.02 X 10*3/uL (1.80-7.70); Neutrophils % (A) 54.8 %; Platelet Count 236 X 10*3/uL (140-440); RBC 4.78 X 10*6/uL (4.10-5.20); RDW 13.6 % (11.5-14.5); WBC 5.51 X 10*3/uL (4.50-10.00)
[2025-01-23 15:32] LABS: ALT 45 U/L (8-44); AST 32 U/L (13-35); Albumin 4.6 g/dL (3.8-4.9); Albumin/Globulin Ratio 1.77 Ratio (1.60-3.17); Alkaline Phosphatase 65 U/L (41-126); Appearance,Urine Cloudy (Clear); BUN/Creat Ratio 17.89 Ratio (12.00-20.00); Bilirubin,Urine Negative (Negative); Blood Urea Nitrogen 16.1 mg/dL (9.0-27.0); Blood,Urine Trace (Negative); Calcium 10.4 mg/dL (8.7-10.3); Carbon Dioxide 24.7 mmol/L (21.6-31.8); Chloride 104 mmol/L (96-109); Chol/HDL Ratio 2.25 Ratio; Color,Urine Yellow (Yellow); Globulin 2.6 g/dL (1.6-3.3); Glucose 103 mg/dL (70-110); Ketones,Urine Negative (Negative); LDL Cholesterol,Calculated 47.6 mg/dL (0.0-131.0); Nitrite,Urine Negative (Negative); Potassium 4.3 mmol/L (3.5-5.5); Sodium 139 mmol/L (135-145); Specific Gravity,Urine 1.018 (1.001-1.030); Total Bilirubin 0.4 mg/dL (0.3-1.2); Total Protein 7.2 g/dL (6.2-8.2); Urobilinogen,Urine 0.2 E.U./DL
[2025-01-23 16:13] LABS: Bacteria,Urine Trace (None Seen); Calcium Oxalate Crystals,Urine Present (None Seen)
== END | disposition home or self-care (01) ==
LOC: LABWHC1 08:13
PROVIDERS: ATTEND Internal Medicine
DX: E04.1 Nontoxic single thyroid nodule (principal); R00.1 Bradycardia, unspecified; R73.09 Other abnormal glucose; R31.29 Other microscopic hematuria; E78.2 Mixed hyperlipidemia
CPT/HCPCS: 36415; 80053; 80061; 81001; 83036; 84443; 85025

== ENCOUNTER → 2025-02-05 | Outpatient (CLI) | payer MEDICARE, OTHER ==
--- NOTE | 2025-02-05 10:05 | MM ---
Reason for Exam: Screening (asymptomatic). Last screening mammogram was performed 12 month(s) ago. Patient History: Menarche at age 11. First Full-Term at age 17. Left ovary removed at age 45. Right ovary removed at age 45. Hysterectomy at age 45. Postmenopausal. Patient has history of breast feeding. Estrogen, from age 45 until age 55. 1990, Benign Excisional Biopsy on the right side. Maternal grandmother had breast cancer, age 60. Maternal cousin had breast cancer. Maternal aunt had breast cancer, age 60. Mother had breast cancer, age 75. Risk Values: Cate 5 year model risk: 3.8%. NCI Lifetime model risk: 10.3%. Prior Study Comparison: 08/15/2022 Bilateral MG 3D screening mammo w/cad, [facility]. 08/16/2023 Bilateral MG 3D diag mammo w/cad [facility], [facility]. 02/05/2024 Bilateral MG 3D diag mammo w/cad [facility], [facility]. Tissue Density: The breasts are heterogeneously dense, which may obscure small masses. Findings: Analyzed By CAD. There is no suspicious group of microcalcifications or new suspicious mass in either breast. Overall Assessment: Benign, BI-RAD 2 Management: Screening Mammogram of both breasts in 1 year. . Patient should continue monthly self-breast exams. A clinical breast exam by your physician is recommended on an annual basis. This exam should not preclude additional follow-up of suspicious palpable abnormalities. Note on Cate scores and lifetime risk: 1. A Cate score greater than 3% is considered moderate risk. If this is the case, consider specialist referral to assess eligibility for a risk reducing agent. 2. If overall lifetime risk for the development of breast cancer is 20% or higher, the patient may qualify for future screening with alternating mammogram and breast MRI. [facility], , 02/05/2025 10:02 AM. Electronically signed and approved by: Candelario Han M.D. Radiologis
== END | disposition home or self-care (01) ==
LOC: RADMAMWWP 09:38
PROVIDERS: ATTEND Surgery
DX: Z12.31 Encounter for screening mammogram for malignant neoplasm of breast (principal); R92.333 Mammographic heterogeneous density, bilateral breasts; Z78.0 Asymptomatic menopausal state; Z80.3 Family history of malignant neoplasm of breast
CPT/HCPCS: 77063; 77067

== ENCOUNTER → 2025-02-14 | Outpatient (CLI) | payer MEDICARE, OTHER ==
[2025-02-14 12:15] VITALS: BP 119/79; PULSE 77; RESP 16; TEMP 97.4
--- NOTE | 2025-02-14 12:57 | P.PN ---
Subjective Progress Note Date: 02/14/25 Principal diagnosis: high risk surveillance for breast cancer 02-14-25 Principal diagnosis: fibrocystic breast changes 08/17/23 Principal diagnosis: Fibrocystic breast changes fibrocystic breast changes Deandra is a 68-year-old white female who presents for breast evaluation. She had a bilateral screening mammogram done on 08-16-23. This revealed some distortion within the upper breast bilaterally. Under compression these largely dispersed. This was felt to be BIRADS 3 and diagnostic mammogram of both breast in 6 months was recommended. The patient does not feel any lumps masses or nodules in her breast. The patient is not complaining of any nipple discharge or skin changes. She is not complaining of any pain in her breast. The patient had a right breast biopsy at the age of 36 which was benign Patient had COVID mid September 2020 with joint pain, was not hospitalized, did not lose taste or smell; She did not have the vaccine 02-05-24 bilateral mammogram and ultrasound of bilateral axilla 02-05-24 BIRAD [address] Young; she is complaining of bilateral breast pain for about 3 weeks, The pain is lateral and feel full. She is not compalining of any specific lumps or masses. 02-14-25 bilateral mammogram on 02-05-25 BIRAD 2, bilateral breast MRI 04-15-24 BIRAD 1 no complaints of any lumps masses or nodules in the breast , but she does complain of bilateral chest wall discomfort Also complaining of major fatigue Cate risk evaluation: 5 year breast cancer risk 3.8% lifetime risk: 10.3% We have discussed chemoprevention and she has declined in the past, but now would like to have a discussion regarding this. Family history: 1. mother: breast cancer, endometrial cancer 2. maternal grandmother: breast cancer 3. maternal aunt: breast cancer 4. paternal cousin: breast cancer pre-menopausal Hormonal History: menarche: 11 , breast fed: yes, age at first 17 menopause: BENJY at 45 ( for endometriosis) BCP: none hormones: 10 years Surgical history: 1. Total abdominal hysterectomy 2. Right breast lumpectomy for benign disease at the age of 36 3. tonsil and adenoids 4. umbilical hernia 5. pilonidal cyst 6. tubal-ligation 7. septum surgery 8 cataracts 9. liver biopsy 10. gallbladder 11. 3 low back surgeries Medical History: 1.REYNOLDS-nonalcoholic fatty liver disease 2. cardiac anomaly 3. Back pain/severe spinal stenosis at L4-5 and stenosis at L3-4 4. Viral encephalopathy at 22 a recent MRI done ; chronic appearing periventricular and deep white matter changes Social History: smoke: none alcohol: none drugs: none - Constitutional Constitutional: Denies chills, Denies fever - EENT Eyes: denies blurred vision, denies pain Ears: bilateral: decreased hearing, deny: tinnitus Ears, nose, mouth and throat: Denies headache, Denies sore throat - Breasts Breasts: bilateral: as per HPI - Cardiovascular Comment: congenital cardiac anomaly - Respiratory Respiratory: Denies cough - Gastrointestinal Gastrointestinal: Denies abdominal pain, Denies diarrhea, Denies nausea, Denies vomiting - Genitourinary (Female) Genitourinary: Denies dysuria, Denies hematuria - Menstruation Menstruation: Reports post hysterectomy - Musculoskeletal Comment: arthritis Musculoskeletal: Reports myalgias - Integumentary Comment: none - Neurological Neurological: Denies numbness, Denies weakness - Psychiatric Psychiatric: Denies anxiety, Denies depression - Endocrine Endocrine: Denies fatigue, Denies weight change - Hematologic/Lymphatic Comment: none - Allergic/Immunologic Allergic/Immunologic: Reports seasonal allergies Objective - Vital Signs Vital signs: Vital Signs Temp 97.4 F L 02/14/25 12:12 Pulse 77 02/14/25 12:12 Resp 16 02/14/25 12:12 BP 119/79 02/14/25 12:12 Pulse Ox 97 02/14/25 12:12 FiO2 Intake & Output 02/13/25 02/14/25 02/14/25 18:59 06:59 18:59 Weight 74.843 kg - Constitutional General appearance: Present: cooperative - EENT Eyes: Present: EOMI ENT: Present: hearing grossly normal - Neck Neck: Present: normal ROM - Respiratory Respiratory: bilateral: CTA - Cardiovascular Rhythm: regular Heart sounds: normal: S1, S2 - Integumentary Integumentary: Present: normal turgor - Musculoskeletal Musculoskeletal: Present: gait normal - Psychiatric Psychiatric: Present: A&O x's 3, appropriate affect, intact judgment & insight - Additional findings Additional findings: Breast Exam: [id number] Inspection: bilateral grade 3 ptosis, right breast larger than left breast palpation: Right breast: multipositional exam no dominate masses or nodules of concern right axilla: no adenopathy of concern left breast: multipositional exam no dominate masses or nodules of concern left axilla: no adenopathy of concern Assessment and Plan Assessment: Impression: Fibrocystic breast changes BIRADS 2 3-12-25 Plan: Bilateral mammogram in [address] Gonzalez regarding chemoprophylaxis, patient is at high risk with her 5-year risk being 3.8%, patient declined Hormone prophylaxis may also help with the breast discomfort CC: Dr. Calhoun
== END ==
LOC: WWCWWP 11:39
PROVIDERS: ATTEND Surgery
DX: N60.19 Diffuse cystic mastopathy of unspecified breast (principal); Z80.3 Family history of malignant neoplasm of breast; Z88.0 Allergy status to penicillin

== ENCOUNTER → 2025-02-21 | Outpatient (CLI) | payer MEDICARE, OTHER ==
--- NOTE | 2025-02-21 14:08 | NM ---
EXAMINATION TYPE: NM DatScan Brain SPECT DATE OF EXAM: 02/21/2025 COMPARISON: MRI brain 08/17/2021 CLINICAL INDICATION: Female, 69 years old with history of G25.0 essential tremor; TECHNIQUE: 10 drops of Lugol's solution was administered 1 hour prior to injection as a thyroid bloc deandre agent. After the administration of 4.62 mCi I-123 Ioflupane DaTscan. Images obtained 3 hours p ost injection. SPECT images of the brain were acquired with axial and coronal reconstructions. FINDINGS: The uptake of radiotracer within the patient's caudate nuclei and putamina is symmetric and crescent- shaped. IMPRESSION: There is no scintigraphic evidence of a neurodegenerative disorder (Parkinson's disease, Multisystem atrophy or Progressive supranuclear palsy), as there is symmetric uptake of I-123 Ioflupan (DaTscan) within the caudate nuclei and putamina. [facility], , 02/21/2025 2:06 PM
== END | disposition home or self-care (01) ==
LOC: RADNMMAIN 08:58
PROVIDERS: ATTEND Internal Medicine
DX: G25.0 Essential tremor (principal)
CPT/HCPCS: 78803; A9584

== ENCOUNTER → 2025-05-29 | Outpatient (CLI) | payer MEDICARE, OTHER ==
[2025-05-29 08:26] LABS: Bilirubin,Urine Negative (Negative); Blood,Urine Moderate (Negative); Color,Urine Light Yellow; Glucose,Urine (UA) Negative (Negative); Hyaline Casts,Urine 1 /lpf (0-2); Ketones,Urine Negative (Negative); Leukocyte Esterase,Urine Large (Negative); Mucus,Urine Rare /hpf; Nitrite,Urine Negative (Negative); PH, Urine 6.5 (5.0-8.0); Protein,Urine Negative (Negative); RBC,Urine 11 /hpf (0-5); Specific Gravity,Urine 1.017 (1.001-1.035); Squamous Epithelial Cell,Urine <1 /hpf (0-4); Urobilinogen,Urine <2.0 mg/dL (<2.0); WBC,Urine 16 /hpf (0-5)
[2025-05-29 11:49] LABS: Basophils # (A) 0.04 X 10*3/uL (0.00-0.10); Basophils % (A) 0.7 %; Eosinophils # (A) 0.10 X 10*3/uL (0.04-0.35); Eosinophils % (A) 1.7 %; HCT 42.7 % (37.2-46.3); HGB 13.4 g/dL (12.0-15.0); Immature Grans, Automated 0.20 %; Lymphocytes # (A) 2.15 X 10*3/uL (0.90-5.00); Lymphocytes % (A) 37.1 %; MCH 27.9 pg (27.0-32.0); MCHC 31.4 g/dL (32.0-37.0); MCV 88.8 FL (80.0-97.0); Monocytes # (A) 0.40 X 10*3/uL (0.20-1.00); Monocytes % (A) 6.9 %; NRBC Per 100 WBC 0 X 10*3/uL (0.00-0.01); Neutrophils # (A) 3.09 X 10*3/uL (1.80-7.70); Neutrophils % (A) 53.4 %; Platelet Count 228 X 10*3/uL (140-440); RBC 4.81 X 10*6/uL (4.10-5.20); RDW 13.8 % (11.5-14.5); WBC 5.79 X 10*3/uL (4.50-10.00)
[2025-05-29 12:19] LABS: BUN/Creat Ratio 19.50 Ratio (12.00-20.00); Blood Urea Nitrogen 19.5 mg/dL (9.0-27.0); Cholesterol 142.00 mg/dL (0.00-200.00); Glucose 106 mg/dL (70-110); HDL Cholesterol 68.00 mg/dL (40.00-60.00); LDL Cholesterol,Calculated 47.2 mg/dL (0.0-131.0); Triglycerides 134.00 mg/dL (0.00-149.00); VLDL Calculation 26.80 mg/dL (5.00-40.00)
[2025-05-29 12:20] LABS: ALT 47 U/L (8-44); AST 34 U/L (13-35); Albumin 4.7 g/dL (3.8-4.9); Albumin/Globulin Ratio 1.81 Ratio (1.60-3.17); Alkaline Phosphatase 66 U/L (41-126); Anion Gap 10.50 mmol/L (4.00-12.00); Calcium 10.5 mg/dL (8.7-10.3); Carbon Dioxide 25.5 mmol/L (21.6-31.8); Chloride 104 mmol/L (96-109); Globulin 2.6 g/dL (1.6-3.3); Potassium 4.6 mmol/L (3.5-5.5); Sodium 140 mmol/L (135-145); Total Protein 7.3 g/dL (6.2-8.2)
== END | disposition home or self-care (01) ==
LOC: LABWHC1 07:46
PROVIDERS: ATTEND Internal Medicine
DX: Z00.00 Encounter for general adult medical examination without abnormal findings (principal); E78.2 Mixed hyperlipidemia; E55.9 Vitamin D deficiency, unspecified; R73.09 Other abnormal glucose
CPT/HCPCS: 36415; 80053; 80061; 81001; 82306; 83036; 84443; 85025; 87086

== ENCOUNTER → 2025-06-17 | Outpatient (CLI) | payer MEDICARE, OTHER ==
[2025-06-17 10:11] LABS: African American GFR (CKD) 72 (>60 ml/min/1.73 sqM); Blood Urea Nitrogen 24 mg/dL (7-17); Non-African American GFR(CKD) 63 (>60 ml/min/1.73 sqM)
--- NOTE | 2025-06-21 01:28 | CT ---
EXAMINATION TYPE: CT urogram wo/w con DATE OF EXAM: 06/17/2025 11:37 AM COMPARISON: None. CLINICAL INDICATION: Female, 70 years old with history of R31.29 MICROSCOPIC HEMATURIA, microscopic h ematuria TECHNIQUE: Axial images were obtained from above the diaphragm to the pubic rami in the axial plane a t 5 mm thick sections. Reconstructed images are reviewed on the computer in the coronal plane. CONTRAST: 100 mL of Isovue 300. Study performed DLP: 2949 mGycm, Automated exposure control for dose reduction was used. FINDINGS: Limited CT sections are obtained the lung bases. The lung bases are clear. CT ABDOMEN: Liver: Normal Spleen: Normal Pancreas: Normal Adrenal glands: The adrenal glands are normal. Gallbladder: Surgically absent Kidneys: No masses are evident. No hydronephrosis is present. Scattered cortical renal cysts are pr esent. Multiple nonobstructing renal stones are within the bilateral kidneys. There is mild right hy dronephrosis and hydroureter. No obstructing renal or ureteral stone evident. 3D reconstructed images performed with separate computer by the Technologist. Mild bilateral hydronep hrosis present, greater on the right. There are small course and contour to the bladder. Mild right h ydroureter is present. Aorta: Vascular calcification is within the aorta. Inferior vena cava: Normal. CT PELVIS: Loops of bowel within the abdomen and pelvis are normal. Scattered diverticuli are present. There are loops of bowel which are incompletely distended or lack oral contrast limiting their evaluation. Appendix: Normal as visualized. Urinary bladder: Normal. Genitourinary structures: Uterus and ovaries are not identified Osseous structures: No suspicious lytic or sclerotic lesions. IMPRESSION: 1. Mild bilateral hydronephrosis. Some mild right hydroureter is present. An obstructing etiology is not identified. 2. Multiple bilateral nonobstructing renal stones [facility], Workstation: [facility], 06/21/2025 1:26 AM
== END | disposition home or self-care (01) ==
LOC: RADCTMAIN 09:25
PROVIDERS: ATTEND Internal Medicine
DX: N13.2 Hydronephrosis with renal and ureteral calculous obstruction (principal); N13.4 Hydroureter
CPT/HCPCS: 82565; 84520; 74178; 36415; 74400; Q9967

== ENCOUNTER → 2025-06-25 | Outpatient (CLI) | payer MEDICARE, OTHER ==
--- NOTE | 2025-06-25 13:57 | NM ---
EXAMINATION TYPE: NM parathyroid w/spect DATE OF EXAM: 06/25/2025 COMPARISON: NONE CLINICAL INDICATION: Female, 70 years old with history of R79.9 abnormal blood chemistry; TECHNIQUE: Following administration of 26.9 mCi Tc99m Sestamibi. Anterior projection images of the neck and ches t were obtained 10 minutes and 3 hours post injection. SPECT images of the neck and chest were obtai frieda and reconstructed in three axes. FINDINGS: Thyroid tracer washout: Delayed images demonstrate near-complete tracer washout from the thyroid. Parathyroid uptake: None. The two-hour delayed images do not demonstrate any focal abnormal persisten t uptake in the region of the parathyroid glands to suggest parathyroid adenoma. Normal uptake: There is physiological tracer uptake in the myocardium, liver, salivary glands, and th yroid gland. IMPRESSION: Normal parathyroid imaging study. No evidence for mediastinal uptake to suggest mediastinal parathyro id adenoma [facility], , 06/25/2025 1:55 PM
== END | disposition home or self-care (01) ==
LOC: RADNMMAIN 09:31
PROVIDERS: ATTEND Internal Medicine
DX: R79.9 Abnormal finding of blood chemistry, unspecified (principal)
CPT/HCPCS: 78071; A9500